=== PATIENT | female | born 1950 | race Caucasian/White ===

== ENCOUNTER → 2016-11-16 | Day surgery (SDC) | payer OTHER, MEDICAID ==
[~2016-11-16] VITALS: Ht 149.8 cm; Wt 56.7 kg
[~2016-11-16] MED LIST: AMITRIPTYLINE H10 M1 PO; ANTIVERT/2525 MG PO; ANTIVERT25 MG PO; B12,B-12,B 12500 MC1 PO; B121000 MCG/2; BACTRIM DS 8001 TA1 PO; CIPROFLOXACIN500 MG PO; DARVOCET N 1001 TAB PO; DONNATAL1 TAB PO; EVISTA60 MG PO; FERROUS SULFAT325 M1 PO; FLAGYL500 MG PO; FLEXERIL10 MG PO; FLEXERIL5 MG PO; GLUCOPHAGE500 M1 PO; HYDROCODONE BIT1 T11 PO; JANUVIA100 MG PO; KEFLEX500 MG PO; LEVOFLOXACIN500 MG PO; MECLIZINE HCL25 M2 PO; MIRTAZAPINE15 M1 PO; MIRTAZAPINE7.5 MG PO; NEURONTIN300 MG PO; NEXIUM40 MG PO; NORTRIPTYLINE10 MG PO; OMNICEF300 MG PO; OS-CAL 500500 M1 PO; PAXIL20 MG PO; PEPCID20 MG PO; PRAVACHOL40 MG PO; PRAVACHOL80 MG PO; PRILOSEC20 M1 PO; PYRIDIUM200 M1 PO; REGLAN5 MG PO; REMERON15 M2 PO; SEPTRA DS 800 M1 TAB PO; SIMVASTATIN40 MG PO; TOPROL XL25 MG PO; TRAMADOL HCL50 MG PO; TRAZODONE HCL50 MG PO; TRAZODONE50 MG PO; ULTRAM50 MG PO; VENTOLIN 02.5 MG/3 M INH; VENTOLIN0.09 MG/AC INH; VICODIN 500 MG-1 TAB PO; VITAMIN D2000 IU PO; VITAMIN D32000 UNIT PO; ZETIA10 MG PO; ZITHROMAX Z PA250 MG PO
--- NOTE | ~2016-11-16 | O ---
[place], [place] OPERATIVE NOTE NAME: FRANCISCO SALEEM I UNIT #: [id number] ROOM: DOCTOR: SHARMIN HOYT MD BIRTHDATE: [birth year] DOS: 11/16/2016 PREOPERATIVE DIAGNOSIS: Toxic labyrinthitis, left ear. POSTOPERATIVE DIAGNOSIS: Toxic labyrinthitis, left ear. OPERATION: Intratympanic dexamethasone injection, left ear. SURGEON: Dr. Hoyt. ANESTHESIA: General. OPERATIVE FINDINGS AND PROCEDURE: Following induction of general anesthesia the patient was positioned supine on the OR table, draped in a standard fashion for ear surgery. Approximately 1 mL of dexamethasone injection 10 mg/mL concentration was placed in the left middle ear space using a 25 gauge spinal needle. The patient tolerated the procedure well, was awakened and transported to PACU in satisfactory condition. SHARMIN HOYT MD CM:OPRECORD:OPERATIVE NOTE 0940 [id number] SHARMIN HOYT MD 11/16/16 1009 interface
[2016-11-16 09:13] VITALS: BP 147/71
[2016-11-16 09:52] VITALS: BP 135/65
[2016-11-16 10:07] VITALS: BP 139/63
[2016-11-16 10:22] VITALS: BP 133/73
== END | disposition home or self-care (01) ==
LOC: SDC 11-15 17:30
DX: H83.02 Labyrinthitis, left ear (principal); F32.9 Major depressive disorder, single episode, unspecified; M19.90 Unspecified osteoarthritis, unspecified site; E11.9 Type 2 diabetes mellitus without complications; J45.909 Unspecified asthma, uncomplicated; F41.9 Anxiety disorder, unspecified; G47.30 Sleep apnea, unspecified; Z98.84 Bariatric surgery status; Z90.710 Acquired absence of both cervix and uterus; Z83.3 Family history of diabetes mellitus; Z82.5 Family history of asthma and other chronic lower respiratory diseases; Z82.49 Family history of ischemic heart disease and other diseases of the circulatory system; Z87.891 Personal history of nicotine dependence

== ENCOUNTER 2017-01-17 18:28 | Inpatient (IN) | payer OTHER, MEDICAID ==
[~2017-01-17] VITALS: Ht 152.4 cm; Wt 59.5 kg
--- NOTE | ~2017-01-17 | CON ---
[place], [place] REPORT OF CONSULTATION NAME: FRANCISCO SALEEM I UNIT #: [id number] ROOM: 519 DOCTOR: YULIYA CRAFT MD BIRTHDATE: [birth year] DOS: HISTORY OF PRESENT ILLNESS: A 66-year-old female with a history of diabetes, presented with persistent headache that lasted about a couple of hours prior to coming to the Emergency Room. I had done a stress test on her in 01/11 showed no evidence of ischemia with preserved systolic function. She had some associated shortness of breath. No chest discomfort. Also, intermittent chest pain, but last night, did have some pain. No acute EKG changes, suggestion of myocardial injury or infarction. Chest x-ray in the Emergency Room showed no pneumonia. PAST MEDICAL HISTORY: Diabetes, hypertension, hyperlipidemia. PAST SURGICAL HISTORY: Cholecystectomy, gastric bypass surgery, hysterectomy. SOCIAL HISTORY: 1-2 cigarettes a day for 1 year, used to smoke about 1 pack per day for 35 years. Denies any alcohol abuse. FAMILY HISTORY: Positive for lung cancer. ALLERGIES: LEVOFLOXACIN. HOME MEDICATIONS: Meclizine, metoprolol succinate, omeprazole, pravastatin. REVIEW OF SYSTEMS: CONSTITUTIONAL: No fever, no chills. HEENT: No visual disturbances or hearing problems. CARDIOVASCULAR: No chest pain, no palpitations. RESPIRATORY: Has some shortness of breath. GASTROINTESTINAL: No nausea, no vomiting. GENITOURINARY: No dysuria, hematuria. NEUROLOGIC: Has some dizziness. ENDOCRINE: Intact. SKIN: Normal. PHYSICAL EXAMINATION: VITAL SIGNS: Blood pressure is 150/60. HEENT: Unremarkable. NECK: Supple, no JVD. LUNGS: Clear to auscultation and percussion. HEART: Heart sounds are regular. ABDOMEN: Soft. Good bowel sounds. EXTREMITIES: Intact pulses. NEUROLOGIC: Stable. LABORATORY DATA: Hemoglobin and hematocrit within normal limits. Potassium 5.1, creatinine is 1.1. Liver functions are normal. Chest x-ray showed no pneumonia. IMPRESSION: The patient with atypical chest discomfort, history of diabetes, [place], [place] REPORT OF CONSULTATION NAME: FRANCISCO SALEEM I UNIT #: [id number] ROOM: 519 DOCTOR: YULIYA CRAFT MD BIRTHDATE: [birth year] hypertension, and hyperlipidemia. Recent stress test is completely normal. Maximize the medications, increase the metoprolol to 25 daily from 12.5 to 25. RECOMMENDATIONS: Continue all her other home medications and will follow up. YULIYA CRAFT MD CM:CONSTR:REPORT OF CONSULTATION 0732 01/18/17 0759 interface
--- NOTE | ~2017-01-17 | PR ---
[place], [place] PROGRESS NOTE NAME: FRANCISCO SALEEM I UNIT #: [id number] ROOM: 519 DOCTOR: YULIYA CRAFT MD BIRTHDATE: [birth year] DOS: SUBJECTIVE: 24-hour events noted. Discussed with the nursing staff. Cardiac status appears to be stable. She denies any more chest discomfort. All her cardiac enzymes have been negative. The patient has problems with the blood sugars and being evaluated. OBJECTIVE: VITAL SIGNS: Blood pressure is 120/60. She is in sinus rhythm. Pulse ox is 100. NECK: Supple, no JVD. LUNGS: Clear. HEART: Sounds are regular. ABDOMEN: Soft, nontender. NEUROLOGIC: Stable. LABORATORY DATA: Hemoglobin and hematocrit within normal limits. Electrolytes are normal. Troponins have all been negative. Glucose is 103, yesterday she was hypoglycemic. IMPRESSION: The patient admitted with headaches and atypical chest discomfort. Cardiac status appears to be stable. PLAN: Continue the present medications as ordered. Continue the insulin, monitor the blood sugars very closely and we will follow up. YULIYA CRAFT MD CM:PNTRANS [id number] YULIYA CRAFT MD 01/19/17 1041 interface
[~2017-01-17 18:28] MED LIST changes: -AMITRIPTYLINE H10 M1 PO; -B12,B-12,B 12500 MC1 PO
[2017-01-17 18:38] VITALS: BP 148/60
[2017-01-17 19:04] LABS: BASO # 0.1 10*3/uL (0.0-0.1); BASO % 0.8 % (0.0-1.0); EOS # 0.1 10*3/uL (0.0-0.4); EOS % 1.4 % (1.0-4.0); HEMATOCRIT 40.6 % (37.0-47.0); HEMOGLOBIN 13.1 g/dl (12.0-16.0); LYMPH % 30.5 % (27.0-41.0); MEAN CELL VOLUME 98.5 fl (81.0-99.0); MEAN CORPUSCULAR HGB 31.8 pg (27.0-31.0); MEAN CORPUSCULAR HGB CONC 32.3 g/dl (33.0-37.0); MEAN PLATELET VOLUME 11.2 fl (9.6-12.3); MONO # 0.4 10*3/uL (0.1-1.0); MONO % 6.3 % (3.0-9.0); NEUT % 60.8 % (47.0-73.0); PLATELET COUNT AUTOMATED 267 10*3/uL (130-400); RED BLOOD COUNT 4.12 10*6/uL (4.10-5.10); RED CELL DISTRI WIDTH 13.2 % (0-14.5); WHITE BLOOD COUNT 6.6 10*3/uL (4.8-10.8)
[2017-01-17 19:16] VITALS: BP 164/84
[2017-01-17 19:24] LABS: ALKALINE PHOSPHATASE 178 U/L (45-117); BILIRUBIN, TOTAL 0.2 mg/dl (0.2-1.0); BUN 15 mg/dl (7-24); CARBON DIOXIDE 23 mmol/L (21-32); CHLORIDE 107 mmol/L (98-107); EST GLOM FILT AFRICAN AMERICAN 57 ml/min; GLUCOSE 409 mg/dL (65-99); POTASSIUM 5.1 mmol/L (3.5-5.1); SGOT/AST 22 IU/L (3-35); SGPT/ALT 27 U/L (12-78); SODIUM 142 mmol/L (136-145); TOTAL PROTEIN 6.4 gm/dL (6.4-8.2)
[2017-01-17 19:28] LABS: TROPONIN I < 0.015 ng/ml (<0.045)
[2017-01-17 20:16] VITALS: BP 152/73
[2017-01-17 20:23] LABS: BILIRUBIN NEGATIVE (NEGATIVE); BLOOD NEGATIVE (NEGATIVE); CLARITY CLEAR (CLEAR); COLOR YELLOW (YELLOW); GLUCOSE 3+ (NEGATIVE); KETONE TRACE (NEGATIVE); LEUKO ESTERASE NEGATIVE (NEGATIVE); NITRITE NEGATIVE (NEGATIVE); PROTEIN NEGATIVE (NEGATIVE); SPECIFIC GRAVITY 1.025 (1.005-1.030); UROBILINOGEN 0.2 E.U./dl (0.2-1.0)
[2017-01-17 20:34] LABS: URINE REFLEX COMMENT YES (NO)
[2017-01-17 21:04] VITALS: BP 154/67
[2017-01-18] VITALS: BP 150/73
[2017-01-18 00:55] LABS: CKMB 1.5 ng/ml (0.5-3.6); CPK 54 U/L (26-192)
[2017-01-18 00:56] LABS: TROPONIN I < 0.015 ng/ml (<0.045)
[2017-01-18] MEDS ORDERED: AMITRIPTYLINE H10 M1 PO (02:02)
[2017-01-18 06:20] LABS: BASO # 0.1 10*3/uL (0.0-0.1); BASO % 0.7 % (0.0-1.0); EOS # 0.2 10*3/uL (0.0-0.4); EOS % 2.1 % (1.0-4.0); HEMATOCRIT 36.6 % (37.0-47.0); HEMOGLOBIN 11.9 g/dl (12.0-16.0); LYMPH # 3.9 10*3/uL (1.3-4.4); LYMPH % 47.3 % (27.0-41.0); MEAN CELL VOLUME 98.1 fl (81.0-99.0); MEAN CORPUSCULAR HGB 31.9 pg (27.0-31.0); MEAN CORPUSCULAR HGB CONC 32.5 g/dl (33.0-37.0); MEAN PLATELET VOLUME 11.3 fl (9.6-12.3); MONO # 0.6 10*3/uL (0.1-1.0); MONO % 7.7 % (3.0-9.0); NEUT # 3.4 10*3/uL (2.3-7.9); PLATELET COUNT AUTOMATED 209 10*3/uL (130-400); RED BLOOD COUNT 3.73 10*6/uL (4.10-5.10); RED CELL DISTRI WIDTH 13.1 % (0-14.5); WHITE BLOOD COUNT 8.2 10*3/uL (4.8-10.8)
[2017-01-18 06:34] LABS: BUN 11 mg/dl (7-24); CARBON DIOXIDE 20 mmol/L (21-32); CHLORIDE 115 mmol/L (98-107); CHOLESTEROL 90 mg/dL (<200); EST GLOM FILT AFRICAN AMERICAN > 60 ml/min; GLUCOSE 66 mg/dL (65-99); HDL CHOLESTEROL 54 mg/dl (40-60); LDL CHOLESTEROL 28 mg/dL (9-159); MAGNESIUM 2.1 mg/dL (1.5-2.1); PHOSPHOROUS 3.7 mg/dL (2.5-4.9); POTASSIUM 3.7 mmol/L (3.5-5.1); SODIUM 148 mmol/L (136-145); TRIGLYCERIDES 41 mg/dl (<150); VLDL CHOLESTEROL 8 mg/dL (6-40)
[2017-01-18 06:36] LABS: CKMB 1.5 ng/ml (0.5-3.6); CPK 59 U/L (26-192); TROPONIN I < 0.015 ng/ml (<0.045)
[2017-01-18 06:54] LABS: HEMOGLOBIN A1c 6.7 % (4.8-5.6)
[2017-01-18 08:00] VITALS: BP 120/52
[2017-01-18 08:27] LABS: VITAMIN D, 25-HYDROXY 30.4 ng/mL (30-100)
[2017-01-18 08:28] LABS: FOLIC ACID 20.75 ng/mL (>5.38)
[2017-01-18 12:00] VITALS: BP 139/80
[2017-01-18 16:00] VITALS: BP 124/71
[2017-01-18 20:00] VITALS: BP 118/66
[2017-01-19] VITALS: BP 128/52
[2017-01-19 06:15] LABS: BASO # 0.1 10*3/uL (0.0-0.1); EOS # 0.2 10*3/uL (0.0-0.4); EOS % 3.7 % (1.0-4.0); HEMATOCRIT 37.1 % (37.0-47.0); HEMOGLOBIN 12.2 g/dl (12.0-16.0); LYMPH # 2.9 10*3/uL (1.3-4.4); LYMPH % 47.4 % (27.0-41.0); MEAN CELL VOLUME 96.9 fl (81.0-99.0); MEAN CORPUSCULAR HGB 31.9 pg (27.0-31.0); MEAN CORPUSCULAR HGB CONC 32.9 g/dl (33.0-37.0); MEAN PLATELET VOLUME 11.4 fl (9.6-12.3); MONO # 0.7 10*3/uL (0.1-1.0); MONO % 10.6 % (3.0-9.0); NEUT # 2.3 10*3/uL (2.3-7.9); NEUT % 37.1 % (47.0-73.0); PLATELET COUNT AUTOMATED 238 10*3/uL (130-400); RED BLOOD COUNT 3.83 10*6/uL (4.10-5.10); RED CELL DISTRI WIDTH 13.2 % (0-14.5); WHITE BLOOD COUNT 6.1 10*3/uL (4.8-10.8)
[2017-01-19 06:41] LABS: BUN 7 mg/dl (7-24); CARBON DIOXIDE 25 mmol/L (21-32); CHLORIDE 107 mmol/L (98-107); EST GLOM FILT AFRICAN AMERICAN > 60 ml/min; GLUCOSE 103 mg/dL (65-99); POTASSIUM 3.6 mmol/L (3.5-5.1); SODIUM 143 mmol/L (136-145)
[2017-01-19 07:51] VITALS: BP 120/60
[2017-01-19 12:00] VITALS: BP 101/59
[2017-01-19] MEDS ORDERED: B12,B-12,B 12500 MC1 PO (13:59)
[2017-01-19 16:00] VITALS: BP 138/57
== END 2017-01-19 17:02 | disposition home or self-care (01) | DRG 391 ==
LOC: ED 18:28 → 5E 20:01 → EDHOLD 20:01 → 5E 20:20
PROVIDERS: Internal Medicine; Nurse Practitioner Family
DX: K21.9 Gastro-esophageal reflux disease without esophagitis (principal); N17.0 Acute kidney failure with tubular necrosis; E87.0 Hyperosmolality and hypernatremia; E44.0 Moderate protein-calorie malnutrition; E11.649 Type 2 diabetes mellitus with hypoglycemia without coma; F17.210 Nicotine dependence, cigarettes, uncomplicated; Z96.651 Presence of right artificial knee joint; E55.9 Vitamin D deficiency, unspecified; E11.40 Type 2 diabetes mellitus with diabetic neuropathy, unspecified; E78.5 Hyperlipidemia, unspecified; M81.0 Age-related osteoporosis without current pathological fracture; E53.8 Deficiency of other specified B group vitamins; Z90.710 Acquired absence of both cervix and uterus; Z90.49 Acquired absence of other specified parts of digestive tract; Z88.1 Allergy status to other antibiotic agents; Z88.8 Allergy status to other drugs, medicaments and biological substances; Z79.899 Other long term (current) drug therapy; Z68.24 Body mass index [BMI] 24.0-24.9, adult

== ENCOUNTER 2017-03-27 19:36 | Inpatient (IN) | payer OTHER, MEDICAID ==
[~2017-03-27] VITALS: Ht 152.4 cm; Wt 59.2 kg
--- NOTE | ~2017-03-27 | CON ---
[place], [place] REPORT OF CONSULTATION NAME: FRANCISCO SALEEM I UNIT #: [id number] ROOM: 408 DOCTOR: YULIYA CRAFT MD BIRTHDATE: [birth year] DOS: 03/29/2017 HISTORY OF PRESENT ILLNESS: The patient was seen by Dr. 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 The patient admitted with recurrent chest discomfort. I had just done a stress test on her in January, it showed no evidence of ischemia with preserved systolic function. No acute EKG changes suggestion of myocardial ischemia. She is in sinus rhythm. She is not having any pain. OBJECTIVE: NECK: Supple, no JVD. LUNGS: Clear. HEART: Sounds are regular. ABDOMEN: Soft, nontender. NEUROLOGIC: Stable. LABORATORY DATA: Hemoglobin and hematocrit within normal limits. Cardiac enzymes have all been negative. The patient has been ordered an echocardiogram, which I am going to review. IMPRESSION: The patient with recurrent chest discomfort, protein-calorie malnutrition, hypertension, hyperlipidemia, and diabetes mellitus. PLAN: Continue the present care. Monitor the blood pressure and heart rate closely. We will review the echocardiogram. The patient had a recent stress test which was normal and probably coronary spasm, add a small dose of nitrates to the current regimen like Imdur 15 mg or 30 mg. If she has recurrent angina, I have no other choice other than proceeding with a heart catheterization. Last heart catheterization done in 2010 showed no significant coronary artery disease. YULIYA CRAFT MD CM:CONSTR:REPORT OF CONSULTATION 0723 03/29/17 2153 interface
--- NOTE | ~2017-03-27 | CON ---
[place], [place] REPORT OF CONSULTATION NAME: FRANCISCO SALEEM I UNIT #: [id number] ROOM: 408 DOCTOR: PATRICIA NICK MD BIRTHDATE: [birth year] DOS: 03/28/2017 HISTORY OF PRESENT ILLNESS: This is a 67-year-old -[place] woman with a history of moderate coronary artery disease, has some COPD. She was admitted to the hospital through the Emergency Department. While sitting at home yesterday, she developed anterior chest pressure and discomfort that lasted for about 15 minutes. It was accompanied by mild shortness of breath, but there was no accompanying sweating, nausea, palpitations, or weakness and she did not pass out. She has not had any exertional chest pain or weakness recently, but does have mild exertional shortness of breath. She has had no further episodes. She is a fairly active lady without any cardiac symptoms. PAST MEDICAL HISTORY: [id number] coronary artery disease, GERD, dizziness, hyperlipidemia, hypertension, osteoporosis, has had renal insufficiency in the past, and diabetes mellitus with neuropathy. PAST SURGICAL HISTORY: Cholecystectomy, gastric bypass, hysterectomy, total knee replacement, ventral herniorrhaphy. SOCIAL HISTORY: She smokes about a pack of cigarettes per day. No alcohol use. HOME MEDICATIONS: Amitriptyline 10 mg daily, cyanocobalamin 500 mcg daily, gabapentin 300 daily, meclizine 25 mg b.i.d. p.r.n., metformin 500 mg daily, metoprolol succinate 25 mg half tablet daily, Remeron 15 mg at bedtime, omeprazole 40 mg daily, pravastatin 40 daily, and Evista 60 mg daily. PHYSICAL EXAMINATION: GENERAL: Revealed the patient who looks little older than her age, she is alert and oriented. She is very comfortable. She is not tachypneic. There is no thyromegaly or finger clubbing. CARDIOVASCULAR SYSTEM: Pulse is regular at 72, blood pressure 150/61. Normal JVP. Pedal pulses are palpable. There is no edema in the lower extremities. There are no carotid bruits. RESPIRATORY: Percussion noted normal. Auscultation reveals fairly decent breath sounds with occasional rhonchi. ABDOMEN: Supple, nontender, no organomegaly is present. DIAGNOSTIC STUDIES: An ECG showed normal sinus rhythm at 71 beats per minute and a normal pattern. Troponin I level is less than 0.015 x 3. Renal function is normal. IMPRESSION: This patient with risk factors for known coronary artery disease, has symptoms that are very atypical for myocardial ischemia and I discussed this with Dr. Craft, he will checkout patient's cath report and will recommended whether further cardiac workup is warranted in this patient. I thank you on behalf of Dr. Craft for this consult done. [place], [place] REPORT OF CONSULTATION NAME: HARPERFRANCISCO I UNIT #: [id number] ROOM: [facility] DOCTOR: PATRICIA NICK MD BIRTHDATE: [birth year] PATRICIA NICK MD CM:CONSTR:REPORT OF CONSULTATION 1535 03/29/17 1318 interface YULIYA CRAFT MD
[~2017-03-27 19:36] MED LIST changes: +AMITRIPTYLINE H10 M1 PO; +B12,B-12,B 12500 MC1 PO
[2017-03-27 19:41] VITALS: BP 151/77
[2017-03-27 19:48] VITALS: BP 161/68
[2017-03-27 20:06] LABS: BASO # 0.1 10*3/uL (0.0-0.1); BASO % 1.1 % (0.0-1.0); EOS # 0.2 10*3/uL (0.0-0.4); EOS % 2.7 % (1.0-4.0); HEMATOCRIT 40.6 % (37.0-47.0); HEMOGLOBIN 13.3 g/dl (12.0-16.0); LYMPH # 3.1 10*3/uL (1.3-4.4); LYMPH % 41.9 % (27.0-41.0); MEAN CELL VOLUME 95.5 fl (81.0-99.0); MEAN CORPUSCULAR HGB 31.3 pg (27.0-31.0); MEAN CORPUSCULAR HGB CONC 32.8 g/dl (33.0-37.0); MEAN PLATELET VOLUME 11.8 fl (9.6-12.3); MONO # 0.5 10*3/uL (0.1-1.0); MONO % 6.7 % (3.0-9.0); NEUT # 3.6 10*3/uL (2.3-7.9); NEUT % 47.5 % (47.0-73.0); PLATELET COUNT AUTOMATED 274 10*3/uL (130-400); RED BLOOD COUNT 4.25 10*6/uL (4.10-5.10); RED CELL DISTRI WIDTH 13.2 % (0-14.5); WHITE BLOOD COUNT 7.5 10*3/uL (4.8-10.8)
[2017-03-27 20:16] LABS: PROTHROMBIN TIME 10.8 SECONDS (9.0-12.4)
[2017-03-27 20:40] VITALS: BP 141/61
[2017-03-27 20:41] LABS: ALBUMIN 2.9 gm/dl (3.1-4.5); ALKALINE PHOSPHATASE 195 U/L (45-117); BILIRUBIN, TOTAL 0.3 mg/dl (0.2-1.0); BUN 10 mg/dl (7-24); CARBON DIOXIDE 23 mmol/L (21-32); CHLORIDE 109 mmol/L (98-107); EST GLOM FILT AFRICAN AMERICAN > 60 ml/min; GLUCOSE 282 mg/dL (65-99); MAGNESIUM 1.9 mg/dL (1.5-2.1); POTASSIUM 3.5 mmol/L (3.5-5.1); SGOT/AST 27 IU/L (3-35); SGPT/ALT 26 U/L (12-78); SODIUM 140 mmol/L (136-145); TOTAL PROTEIN 6.4 gm/dL (6.4-8.2)
[2017-03-27 20:42] LABS: TROPONIN I < 0.015 ng/ml (<0.045)
[2017-03-27 20:46] VITALS: BP 134/60
[2017-03-27 20:55] VITALS: BP 122/59
[2017-03-27 22:03] VITALS: BP 128/69
[2017-03-27] MEDS ORDERED: PRAVACHOL40 MG PO (22:12)
[2017-03-27] MEDS ORDERED: EVISTA60 MG PO (22:12)
[2017-03-27] MEDS ORDERED: METFORMIN500 MG PO (22:13)
[2017-03-27] MEDS ORDERED: PRILOSEC20 M1 PO (22:15)
[2017-03-27] MEDS ORDERED: METOPROLOL SUCC50 M1 PO (22:15)
[2017-03-28] VITALS: BP 128/69
[2017-03-28 07:17] LABS: BASO # 0.1 10*3/uL (0.0-0.1); BASO % 0.9 % (0.0-1.0); EOS # 0.3 10*3/uL (0.0-0.4); EOS % 3.2 % (1.0-4.0); HEMATOCRIT 39.3 % (37.0-47.0); LYMPH # 3.8 10*3/uL (1.3-4.4); MEAN CELL VOLUME 94.5 fl (81.0-99.0); MEAN CORPUSCULAR HGB 31.3 pg (27.0-31.0); MEAN CORPUSCULAR HGB CONC 33.1 g/dl (33.0-37.0); MEAN PLATELET VOLUME 12.4 fl (9.6-12.3); MONO # 0.7 10*3/uL (0.1-1.0); MONO % 8.5 % (3.0-9.0); NEUT # 3.2 10*3/uL (2.3-7.9); PLATELET COUNT AUTOMATED 232 10*3/uL (130-400); RED BLOOD COUNT 4.16 10*6/uL (4.10-5.10); WHITE BLOOD COUNT 8.1 10*3/uL (4.8-10.8)
[2017-03-28 07:22] LABS: ALBUMIN 2.8 gm/dl (3.1-4.5); ALKALINE PHOSPHATASE 167 U/L (45-117); BILIRUBIN, TOTAL 0.3 mg/dl (0.2-1.0); BUN 12 mg/dl (7-24); CARBON DIOXIDE 23 mmol/L (21-32); CHLORIDE 111 mmol/L (98-107); EST GLOM FILT AFRICAN AMERICAN > 60 ml/min; FREE T4 1.08 ng/dl (0.76-1.46); GLUCOSE 94 mg/dL (65-99); MAGNESIUM 2.1 mg/dL (1.5-2.1); POTASSIUM 3.5 mmol/L (3.5-5.1); SGOT/AST 22 IU/L (3-35); SGPT/ALT 23 U/L (12-78); SODIUM 143 mmol/L (136-145); TOTAL PROTEIN 5.7 gm/dL (6.4-8.2)
[2017-03-28 08:00] VITALS: BP 132/52
[2017-03-28] MEDS ORDERED: TOPROL XL25 MG PO (09:46)
[2017-03-28 12:00] VITALS: BP 115/61
[2017-03-28 16:00] VITALS: BP 116/58
[2017-03-28 20:00] VITALS: BP 135/63
[2017-03-29] VITALS (7 sets, daily range): BP systolic 100–128; BP diastolic 49–79
[2017-03-29] MEDS ORDERED: D-1000 185 MG-11 TAB PO (15:26)
[2017-03-29] MEDS ORDERED: CALCIUM CARBON500 M1 PO (15:26)
[2017-03-30] VITALS: BP 96/52
[2017-03-30 00:45] LABS: CKMB 1.3 ng/ml (0.5-3.6); CPK 46 U/L (26-192)
[2017-03-30 00:47] LABS: TROPONIN I < 0.015 ng/ml (<0.045)
== END 2017-03-30 06:57 | disposition short-term general hospital (02) | DRG 392 ==
LOC: ED 19:36 → EDHOLD 21:01 → 4E 21:01
PROVIDERS: Emergency Medicine Emergency Medical Services; Family Medicine; Internal Medicine Hospice and Palliative Medicine
DX: K21.9 Gastro-esophageal reflux disease without esophagitis (principal); E44.0 Moderate protein-calorie malnutrition; E11.40 Type 2 diabetes mellitus with diabetic neuropathy, unspecified; E83.51 Hypocalcemia; I07.1 Rheumatic tricuspid insufficiency; F17.210 Nicotine dependence, cigarettes, uncomplicated; I10 Essential (primary) hypertension; E78.5 Hyperlipidemia, unspecified; I25.10 Atherosclerotic heart disease of native coronary artery without angina pectoris; Z96.651 Presence of right artificial knee joint; M81.0 Age-related osteoporosis without current pathological fracture; I35.1 Nonrheumatic aortic (valve) insufficiency; Z68.25 Body mass index [BMI] 25.0-25.9, adult; Z88.1 Allergy status to other antibiotic agents; Z88.8 Allergy status to other drugs, medicaments and biological substances; Z91.048 Other nonmedicinal substance allergy status; Z90.49 Acquired absence of other specified parts of digestive tract; Z90.710 Acquired absence of both cervix and uterus; Z80.1 Family history of malignant neoplasm of trachea, bronchus and lung; Z83.3 Family history of diabetes mellitus; Z80.41 Family history of malignant neoplasm of ovary; Z79.84 Long term (current) use of oral hypoglycemic drugs; Z79.899 Other long term (current) drug therapy

== ENCOUNTER → 2017-06-01 | Day surgery (SDC) | payer OTHER, MEDICAID ==
[2017-05-26 09:30] VITALS: BP 114/58
[~2017-06-01] VITALS: Ht 149.8 cm; Wt 55.8 kg
[~2017-06-01] MED LIST changes: +CALCIUM CARBON500 M1 PO; +D-1000 185 MG-11 TAB PO; +METFORMIN500 MG PO; +METOPROLOL SUCC50 M1 PO; +RANEXA500 M1 PO; +VITAMIN D310000 UNI1 PO
--- NOTE | ~2017-06-01 | O ---
[place], [place] OPERATIVE NOTE NAME: FRANCISCO SALEEM I UNIT #: [id number] ROOM: DOCTOR: SHARMIN HOYT MD BIRTHDATE: [birth year] DOS: 06/01/2017 PREOPERATIVE DIAGNOSIS: Toxic labyrinthitis left ear. POSTOPERATIVE DIAGNOSIS: Toxic labyrinthitis left ear. OPERATION: Intratympanic dexamethasone perfusion left ear. SURGEON: Dr. Hoyt. ANESTHESIA: General. OPERATIVE FINDINGS AND PROCEDURE: Following induction of general anesthesia the patient was positioned supine on the OR table, draped in a standard fashion for ear surgery. Approximately 1 mL of dexamethasone injection 10 mg/mL concentration was placed in the left middle ear space using a 25 gauge spinal needle. The patient tolerated the procedure well, was awakened and transported to PACU in satisfactory condition. SHARMIN HOYT MD CM:OPRECORD:OPERATIVE NOTE 0811 0840 SHARMIN HOYT MD 06/01/17 0841 interface
[2017-06-01 07:30] VITALS: BP 152/71
[2017-06-01 08:12] VITALS: BP 133/72
[2017-06-01 08:25] VITALS: BP 131/65
[2017-06-01 08:42] VITALS: BP 123/61
== END | disposition home or self-care (01) ==
LOC: SDC 05-26 09:30
DX: H83.02 Labyrinthitis, left ear (principal); F32.9 Major depressive disorder, single episode, unspecified; M19.90 Unspecified osteoarthritis, unspecified site; E11.9 Type 2 diabetes mellitus without complications; J45.909 Unspecified asthma, uncomplicated; F41.9 Anxiety disorder, unspecified; F17.210 Nicotine dependence, cigarettes, uncomplicated; G47.30 Sleep apnea, unspecified; Z90.49 Acquired absence of other specified parts of digestive tract; Z98.890 Other specified postprocedural states; Z95.1 Presence of aortocoronary bypass graft; Z83.3 Family history of diabetes mellitus; Z82.49 Family history of ischemic heart disease and other diseases of the circulatory system

== ENCOUNTER → 2017-06-16 | Outpatient (CLI) | payer OTHER, MEDICAID ==
[2017-06-16 12:03] LABS: BUN 9 mg/dl (7-24); EST GLOM FILT AFRICAN AMERICAN > 60 ml/min
== END | disposition home or self-care (01) ==
LOC: LAB 11:31
PROVIDERS: Specialist
DX: R42 Dizziness and giddiness (principal)

== ENCOUNTER → 2017-06-21 | Outpatient (CLI) | payer OTHER, MEDICAID | END | disposition home or self-care (01) | LOC: MRI 12:23 | DX: R51 Headache (principal); R42 Dizziness and giddiness ==

== ENCOUNTER 2017-07-03 15:52 | Emergency (ER) | payer OTHER, MEDICAID ==
[~2017-07-03] VITALS: Ht 124.4 cm; Wt 58.1 kg
[2017-07-03 16:18] LABS: BASO # 0.1 10*3/uL (0.0-0.1); BASO % 0.8 % (0.0-1.0); EOS # 0.1 10*3/uL (0.0-0.4); EOS % 1.6 % (1.0-4.0); HEMATOCRIT 36.9 % (37.0-47.0); HEMOGLOBIN 11.8 g/dl (12.0-16.0); LYMPH # 3.7 10*3/uL (1.3-4.4); LYMPH % 46.8 % (27.0-41.0); MEAN CELL VOLUME 92.9 fl (81.0-99.0); MEAN CORPUSCULAR HGB 29.7 pg (27.0-31.0); MEAN PLATELET VOLUME 11.5 fl (9.6-12.3); MONO # 0.6 10*3/uL (0.1-1.0); NEUT # 3.4 10*3/uL (2.3-7.9); NEUT % 42.5 % (47.0-73.0); PLATELET COUNT AUTOMATED 245 10*3/uL (130-400); RED BLOOD COUNT 3.97 10*6/uL (4.10-5.10); RED CELL DISTRI WIDTH 14.2 % (0-14.5)
[2017-07-03 16:27] LABS: ACT PARTIAL THROMBO TIME 23.9 SECONDS (20.8-31.5)
[2017-07-03 16:34] LABS: ALBUMIN 2.8 gm/dl (3.1-4.5); ALKALINE PHOSPHATASE 162 U/L (45-117); BUN 12 mg/dl (7-24); CHLORIDE 115 mmol/L (98-107); CREATININE 0.74 mg/dL (0.55-1.02); MAGNESIUM 2.2 mg/dL (1.5-2.1); POTASSIUM 3.7 mmol/L (3.5-5.1); SGOT/AST 27 IU/L (3-35); SGPT/ALT 21 U/L (12-78); SODIUM 144 mmol/L (136-145)
[2017-07-03 16:35] LABS: TROPONIN I < 0.015 ng/ml (<0.045)
[2017-07-03 16:46] VITALS: BP 131/65
== END 2017-07-03 17:11 | disposition home or self-care (01) ==
LOC: ED 15:52
PROVIDERS: Emergency Medicine
DX: R07.9 Chest pain, unspecified (principal); R03.0 Elevated blood-pressure reading, without diagnosis of hypertension; Z88.1 Allergy status to other antibiotic agents; Z88.8 Allergy status to other drugs, medicaments and biological substances; Z79.899 Other long term (current) drug therapy; Z87.891 Personal history of nicotine dependence

== ENCOUNTER 2017-09-22 16:36 | Emergency (ER) | payer OTHER, MEDICAID ==
[~2017-09-22] VITALS: Ht 152.4 cm; Wt 55.8 kg
[2017-09-22 16:36] VITALS: BP 137/67
[2017-09-22 19:35] LABS: BILIRUBIN NEGATIVE (NEGATIVE); BLOOD NEGATIVE (NEGATIVE); CLARITY SL CLOUDY (CLEAR); COLOR YELLOW (YELLOW); GLUCOSE 1+ (NEGATIVE); KETONE NEGATIVE (NEGATIVE); LEUKO ESTERASE NEGATIVE (NEGATIVE); NITRITE POSITIVE (NEGATIVE); PH 5.5 (5.0-9.0); SPECIFIC GRAVITY 1.025 (1.005-1.030); UROBILINOGEN 0.2 E.U./dl (0.2-1.0)
[2017-09-22 19:45] LABS: BACTERIA 3+; CALCIUM OXALATE CRYSTALS 2+; EPITHELIAL CELLS 0-2
[2017-09-22] MEDS ORDERED: MACROBID100 M1 PO (20:13)
[2017-09-22] MEDS ORDERED: PYRIDIUM100 MG PO (20:16)
== END 2017-09-22 20:21 | disposition home or self-care (01) ==
LOC: ED 16:36
PROVIDERS: Nurse Practitioner
DX: N39.0 Urinary tract infection, site not specified (principal); Z88.8 Allergy status to other drugs, medicaments and biological substances; Z88.1 Allergy status to other antibiotic agents; Z79.84 Long term (current) use of oral hypoglycemic drugs; Z79.899 Other long term (current) drug therapy; Z90.49 Acquired absence of other specified parts of digestive tract; Z90.710 Acquired absence of both cervix and uterus; Z98.84 Bariatric surgery status; Z96.653 Presence of artificial knee joint, bilateral

== ENCOUNTER → 2017-10-18 | Outpatient (CLI) | payer OTHER, MEDICAID ==
[~2017-10-18] MED LIST changes: +MACROBID100 M1 PO; +PYRIDIUM100 MG PO
== END | disposition home or self-care (01) ==
LOC: MAMMO 09-14 14:00
DX: Z12.31 Encounter for screening mammogram for malignant neoplasm of breast (principal)

== ENCOUNTER → 2018-02-10 | Outpatient (CLI) | payer OTHER, MEDICAID ==
[2018-02-10 12:43] LABS: BASO # 0.1 10*3/uL (0.0-0.1); BASO % 0.8 % (0.0-1.0); EOS # 0.1 10*3/uL (0.0-0.4); EOS % 0.9 % (1.0-4.0); HEMATOCRIT 38.6 % (37.0-47.0); HEMOGLOBIN 12.1 g/dl (12.0-16.0); LYMPH # 2.4 10*3/uL (1.3-4.4); LYMPH % 32.6 % (27.0-41.0); MEAN CELL VOLUME 90.2 fl (81.0-99.0); MEAN CORPUSCULAR HGB 28.3 pg (27.0-31.0); MEAN CORPUSCULAR HGB CONC 31.3 g/dl (33.0-37.0); MEAN PLATELET VOLUME 11.8 fl (9.6-12.3); MONO # 0.5 10*3/uL (0.1-1.0); MONO % 7.1 % (3.0-9.0); NEUT # 4.4 10*3/uL (2.3-7.9); NEUT % 58.5 % (47.0-73.0); PLATELET COUNT AUTOMATED 303 10*3/uL (130-400); RED BLOOD COUNT 4.28 10*6/uL (4.10-5.10); RED CELL DISTRI WIDTH 14.1 % (0-14.5); WHITE BLOOD COUNT 7.5 10*3/uL (4.8-10.8)
[2018-02-10 12:50] LABS: IRON 37 ug/dL (50-170); TOTAL IRON BINDING CAPACITY 381 ug/dl (250-450)
== END | disposition home or self-care (01) ==
LOC: LAB 12:19
PROVIDERS: Nurse Practitioner Family
DX: D64.9 Anemia, unspecified (principal)

== ENCOUNTER → 2018-11-15 | Outpatient (CLI) | payer OTHER, MEDICAID ==
[~2018-11-15] MED LIST changes: +Amitriptyline H10 MG PO; +CEFUROXIME AXE250 MG PO
== END | disposition home or self-care (01) ==
LOC: MAMMO 07:38
DX: Z12.31 Encounter for screening mammogram for malignant neoplasm of breast (principal)

== ENCOUNTER 2018-11-29 12:49 | Inpatient (IN) | payer OTHER, MEDICAID ==
[~2018-11-29] VITALS: Ht 149.8 cm; Wt 47.2 kg
--- NOTE | 2018-11-29 | NUR ---
TYLENOL EFFECTIVE PER PT
--- NOTE | ~2018-11-29 | EKG ---
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
--- NOTE | ~2018-11-29 | CON ---
[place], [place] REPORT OF CONSULTATION NAME: FRANCISCO SALEEM I UNIT #: [id number] ROOM: 425 DOCTOR: OWEN VIDALES MD BIRTHDATE: [birth year] DOS: 12/01/2018 GASTROENDOSCOPIC REPORT HISTORY OF PRESENT ILLNESS: A 68-year-old patient who presented with chief complaint of abdominal pain, undergone investigation, CT scan of the abdomen and pelvis shows nonspecific colitis. CBC: White blood cell was 6, H and H of 12 and 39, platelet count was within normal limit. Lactic acid was 2.0. INR was 1.0. Comprehensive metabolic panel, GFR greater than 60. Electrolytes: Potassium and severe hypokalemia of 2.9, has been corrected. Lipase within normal limits. CBC was reassessed. Comprehensive metabolic reassessed. Hypokalemia, corrected. Urine culture greater than 100,000 bacteria. PAST MEDICAL HISTORY: Associated with nonspecific chest pain, hyponatremia, hyperlipidemia, renal insufficiency, osteoporosis, and UTI. PAST SURGICAL HISTORY: Gastric bypass, hysterectomy, cholecystectomy, right total knee, ventral hernia, cardiac catheterization, Raúl fundoplication in the past. ALLERGIES: CELEBREX, ADHESIVE TAPE, LEVOFLOXACIN, LEXAPRO, SOLU-MEDROL, PAXIL. MEDICATIONS: List has been reviewed. SOCIAL HISTORY: Smoker, nonalcohol consumer. FAMILY HISTORY: Noncontributory. REVIEW OF SYSTEMS: HEENT: Denies double vision, blurred vision. RESPIRATORY: Denies shortness of breath. CARDIOVASCULAR: Denies chest pain. DIGESTIVE SYSTEM: As identified above including abdominal pain, cramp, diarrhea. PHYSICAL EXAMINATION: VITAL SIGNS: Stable. HEENT: Head normocephalic, nontraumatic. Mouth and buccal mucosa benign. NECK: Supple, no thyromegaly, no cervical lymphadenopathy. CHEST: Symmetric anatomy, equal expansion. No wheeze, no rhonchi. HEART: Normal sinus rhythm, no gallop, no murmur. ABDOMEN: Soft. No hepato-organomegaly. Bowel sounds present. No pulsatile mass. EXTREMITIES: No cyanosis, no pedal edema. NEUROLOGIC: Alert, oriented to time, place, person. IMPRESSION: Diarrhea, abdominal pain, cramp, nausea. PLAN AND DISCUSSION: Endoscopic assessment of lower GI tract and other adjunctive diagnoses as outlined in paragraph of past medical and past surgical [place], [place] REPORT OF CONSULTATION NAME: FRANCISCO SALEEM I UNIT #: [id number] ROOM: 425 DOCTOR: SOBEIDA CHIU,OWEN BIRTHDATE: [birth year] history. OWEN VIDALES MD CM:CONSTR:REPORT OF CONSULTATION 1613 12/02/18 0454 interface
--- NOTE | ~2018-11-29 | O ---
[place], [place] OPERATIVE NOTE NAME: FRANCISCO SALEEM I UNIT #: [id number] ROOM: 425 DOCTOR: OWEN VIDALES MD BIRTHDATE: [birth year] DOS: GASTROENDOSCOPIC REPORT HISTORY: The patient has presented with chief complaint of abdominal cramps, diarrhea, and epigastric distress. PROCEDURE: Today's procedure part of investigation is panendoscopy and colonoscopy. PREMEDICATION: Propofol. SCOPE: Olympus forward-viewing gastroscope Q10 video. REPORT: After putting the patient in left lateral position and application of lubricant to the scope, scope was introduced. Thereafter, under direct visualization, advanced through the length of esophagus. Gastric pouch was entered. There was minimal residual gastric pouch, status post gastric bypass distal esophagitis. No biopsy obtained because the patient on anticoagulant. The patient extubated, tolerated the procedure well. INDICATIONS: The patient has presented with chief complaint of abdominal cramps. CT scan suspected enteritis Today's procedure part of investigation is colonoscopy. PREMEDICATION: Propofol. SCOPE: Olympus folding colonoscope 10L video. REPORT: After putting the patient in left lateral position and application of lubricant to the scope, scope was introduced. Thereafter, under direct visualization, advanced through the length of colon without difficulty. Base of the cecum explored, appendiceal orifice identified, ileocecal valve was defined. The patient extubated, tolerated the procedure well. IMPRESSION: Normal colonoscopic examination. PLAN AND DISCUSSION: Resumption of feeding. Clinical reassessment. [place], [place] OPERATIVE NOTE NAME: FRANCISCO SALEEM I UNIT #: [id number] ROOM: 425 DOCTOR: OWEN VIDALES MD BIRTHDATE: [birth year] OWEN VIDALES MD CM:OPRECORD:OPERATIVE NOTE 52 OWEN VIDALES MD 12/01/18 1654 interface
[~2018-11-29 12:49] MED LIST changes: -Amitriptyline H10 MG PO; -CEFUROXIME AXE250 MG PO
[2018-11-29 13:02] VITALS: BP 143/56
[2018-11-29 14:41] LABS: BASO # 0.1 10*3/uL (0.0-0.1); BASO % 0.8 % (0.0-1.0); EOS # 0.1 10*3/uL (0.0-0.4); EOS % 0.9 % (1.0-4.0); HEMATOCRIT 39.4 % (37.0-47.0); HEMOGLOBIN 12.4 g/dl (12.0-16.0); LYMPH # 2.7 10*3/uL (1.3-4.4); LYMPH % 41.8 % (27.0-41.0); MEAN CELL VOLUME 87.9 fl (81.0-99.0); MEAN CORPUSCULAR HGB 27.7 pg (27.0-31.0); MEAN CORPUSCULAR HGB CONC 31.5 g/dl (33.0-37.0); MEAN PLATELET VOLUME 11.7 fl (9.6-12.3); MONO # 0.6 10*3/uL (0.1-1.0); MONO % 8.8 % (3.0-9.0); NEUT % 47.4 % (47.0-73.0); PLATELET COUNT AUTOMATED 282 10*3/uL (130-400); RED BLOOD COUNT 4.48 10*6/uL (4.10-5.10); RED CELL DISTRI WIDTH 15.9 % (0-14.5); WHITE BLOOD COUNT 6.4 10*3/uL (4.8-10.8)
--- NOTE | 2018-11-29 14:48 | NUR ---
NOTIFIED BY LAB PTS LACTIC 2.2. DR COLIN NOTIFIED.
[2018-11-29 14:53] LABS: ACT PARTIAL THROMBO TIME 22.3 SECONDS (20.8-31.5)
[2018-11-29 15:01] LABS: BUN 10 mg/dl (7-24); CHLORIDE 106 mmol/L (98-107); LIPASE 56 U/L (73-393); POTASSIUM 2.9 mmol/L (3.5-5.1); SGOT/AST 21 IU/L (3-35); SGPT/ALT 25 U/L (12-78); SODIUM 139 mmol/L (136-145)
[2018-11-29 15:05] LABS: ALKALINE PHOSPHATASE 83 U/L (45-117); TOTAL PROTEIN 6.3 gm/dL (6.4-8.2); TROPONIN I < 0.015 ng/ml (<0.045)
[2018-11-29 15:15] VITALS: BP 127/77
[2018-11-29 15:33] LABS: BILIRUBIN 1+ (NEGATIVE); BLOOD 3+ (NEGATIVE); CLARITY TURBID (CLEAR); COLOR YELLOW (YELLOW); GLUCOSE TRACE (NEGATIVE); KETONE NEGATIVE (NEGATIVE); LEUKO ESTERASE 2+ (NEGATIVE); NITRITE POSITIVE (NEGATIVE)
[2018-11-29 15:47] LABS: BACTERIA 4+
[2018-11-29 16:10] VITALS: BP 157/69
--- NOTE | 2018-11-29 16:10 | NUR ---
A 68, admitted to , under the services of BRENDAN Gama DO with a diagnosis of ABDOMINAL PAIN. Chief complaint is ABDOMINAL PAIN. Patient arrived via wheel chair from ER. Monitor applied. Initial assessment completed. Vital signs taken and recorded. BRENDAN GAMA DO notified of admission to the unit. Orders received. See assessment for past medical history, medications and allergies. Patient and/or family oriented to unit. [facility] visitation policy reviewed. Clothing/patient valuable form completed. GREY AVILES
[2018-11-29 16:45] VITALS: BP 157/69
[2018-11-29] MEDS ORDERED: Amitriptyline H10 MG PO (17:21)
--- NOTE | 2018-11-29 17:45 | NUR ---
DR. VIDALES NOTIFIED OF CONSULT. OBTAINED ORDERS FOR EGD/COLO TUESDAY WITH PREP.
[2018-11-29 20:00] VITALS: BP 147/56
--- NOTE | 2018-11-29 22:14 | NUR ---
TYLENOL GIVEN PER REQUEST FOR C/O UPPER QUADRANT PAIN. WILL LEFTY.
[2018-11-30] VITALS: BP 117/53
[2018-11-30 06:29] LABS: BASO # 0.1 10*3/uL (0.0-0.1); BASO % 0.8 % (0.0-1.0); EOS # 0.2 10*3/uL (0.0-0.4); EOS % 2.4 % (1.0-4.0); HEMATOCRIT 36.5 % (37.0-47.0); HEMOGLOBIN 11.6 g/dl (12.0-16.0); LYMPH # 3.1 10*3/uL (1.3-4.4); MEAN CELL VOLUME 87.1 fl (81.0-99.0); MEAN CORPUSCULAR HGB 27.7 pg (27.0-31.0); MEAN CORPUSCULAR HGB CONC 31.8 g/dl (33.0-37.0); MEAN PLATELET VOLUME 11.3 fl (9.6-12.3); MONO # 0.6 10*3/uL (0.1-1.0); MONO % 9.5 % (3.0-9.0); NEUT # 2.4 10*3/uL (2.3-7.9); NEUT % 38.1 % (47.0-73.0); PLATELET COUNT AUTOMATED 233 10*3/uL (130-400); RED BLOOD COUNT 4.19 10*6/uL (4.10-5.10); RED CELL DISTRI WIDTH 15.8 % (0-14.5); WHITE BLOOD COUNT 6.3 10*3/uL (4.8-10.8)
[2018-11-30 06:53] LABS: ALBUMIN 2.7 gm/dl (3.1-4.5); ALKALINE PHOSPHATASE 72 U/L (45-117); BUN 10 mg/dl (7-24); CHLORIDE 112 mmol/L (98-107); CHOLESTEROL 110 mg/dL (<200); HDL CHOLESTEROL 44 mg/dl (40-60); LDL CHOLESTEROL 52 mg/dL (9-159); PHOSPHOROUS 3.1 mg/dL (2.5-4.9); POTASSIUM 3.7 mmol/L (3.5-5.1); SGOT/AST 19 IU/L (3-35); SGPT/ALT 21 U/L (12-78); SODIUM 143 mmol/L (136-145); TOTAL PROTEIN 5.5 gm/dL (6.4-8.2); TRIGLYCERIDES 71 mg/dl (<150); VLDL CHOLESTEROL 14 mg/dL (6-40)
[2018-11-30 07:28] LABS: VITAMIN D, 25-HYDROXY 18.5 ng/mL (30-100)
[2018-11-30 08:00] VITALS: BP 121/47
--- NOTE | 2018-11-30 10:37 | NUR ---
Bobbin Winder Tender in to talk to patient. Patient states lives at HOME with ALONE. There are SEVERAL steps in the home. Physician: DAO RECINOS Pharmacy: [facility] Home health services: NONE Patient's level of ADLs: INDEPENDENT Patient has working utilities: YES DME: HAS WALKER AT HOME DOES NOT USE ALL THE TIME Follow-up physician's appointment after d/c: WILL BE MADE BY HOSPITALIST NURSE DIRECTOR ON DISCHARGE Does patient want to access PORTAL?: NO Discharge plan PT STATES SHE LIVES AT HOME ALONE AND IS INDEPENDENT IN CARE. DENIES HOME NEEDS ON DISCHARGE. CAN BE DISCHARGED TO HOME WHEN MEDICALLY STABLE. WILL CONTINUE TO FOLLOW.. DANUTA KOROMA
[2018-11-30 12:00] VITALS: BP 130/68
--- NOTE | 2018-11-30 12:56 | NUR ---
PT STATES SHE "FEEL LIKE MY BLOOD SUGAR IS DROPPING" STATES SHE HAD SUDDEN ON SET OF DIZZINESS WHILE LYING IN BED AND DIAPHORETIC. BEDSIDE GLUCOSE CHECKED AND WAS READ CRITICALLY LOW ON GLUCOMETER. STAT REFLEX ORDERED. IN THE MEAN TIME PT'S CLEAR LIQUID DIET ARRIVED FROM THE KITCHEN AND SHE BEGAN TO DRINK HER JUICE AND EAT HER JELLO.
--- NOTE | 2018-11-30 13:22 | NUR ---
GLUCOSE REFLEX AT 49. PT ATE LUNCH AND STATES SHE IS FEELING BETTER NOW. BEDSIDE GLUCOSE CHECKED AFTER LUNCH AND WAS 165. WILL CONTINUE TO MONITOR.
[2018-11-30 16:00] VITALS: BP 146/64
[2018-11-30 20:00] VITALS: BP 140/61
[2018-12-01] VITALS (9 sets, daily range): BP systolic 102–153; BP diastolic 52–70
[2018-12-01 06:27] LABS: BASO # 0.1 10*3/uL (0.0-0.1); BASO % 0.8 % (0.0-1.0); EOS # 0.2 10*3/uL (0.0-0.4); EOS % 2.8 % (1.0-4.0); HEMATOCRIT 39.3 % (37.0-47.0); HEMOGLOBIN 12.1 g/dl (12.0-16.0); LYMPH # 2.1 10*3/uL (1.3-4.4); LYMPH % 34.9 % (27.0-41.0); MEAN CELL VOLUME 89.1 fl (81.0-99.0); MEAN CORPUSCULAR HGB 27.4 pg (27.0-31.0); MEAN CORPUSCULAR HGB CONC 30.8 g/dl (33.0-37.0); MEAN PLATELET VOLUME 11.4 fl (9.6-12.3); MONO # 0.7 10*3/uL (0.1-1.0); MONO % 11.2 % (3.0-9.0); NEUT % 50.1 % (47.0-73.0); PLATELET COUNT AUTOMATED 244 10*3/uL (130-400); RED BLOOD COUNT 4.41 10*6/uL (4.10-5.10)
[2018-12-01 07:01] LABS: ALBUMIN 2.9 gm/dl (3.1-4.5); ALKALINE PHOSPHATASE 78 U/L (45-117); BUN 2 mg/dl (7-24); CHLORIDE 116 mmol/L (98-107); CREATININE 0.66 mg/dL (0.55-1.02); PHOSPHOROUS 3.5 mg/dL (2.5-4.9); POTASSIUM 3.6 mmol/L (3.5-5.1); SGOT/AST 45 IU/L (3-35); SGPT/ALT 33 U/L (12-78); SODIUM 144 mmol/L (136-145); TOTAL PROTEIN 6.1 gm/dL (6.4-8.2)
--- NOTE | 2018-12-01 09:57 | NUR ---
PT HAVING EGD AND COLO TODAY. WILL CONTINUE TO FOLLOW.
[2018-12-01] MEDS ORDERED: GLUCOPHAGE500 M1 PO (18:01)
[2018-12-01] MEDS ORDERED: CEFUROXIME AXE250 MG PO (18:01)
--- NOTE | 2018-12-01 18:42 | NUR ---
DISCHARGE INSTRUCTIONS REVIEWED. HEPLOCK AND FRONT OFFICE ASSOCIATE DC'D. PT FINISHING DINNER AND WILL CALL OUT FOR WHEELCHAIR WHEN READY.
--- NOTE | 2018-12-01 18:50 | NUR ---
PT LEFT VIA WHEELCHAIR AT THIS TIME WITH HER SPOUSE.
== END 2018-12-01 18:50 | disposition home or self-care (01) | DRG 690 ==
LOC: ED 12:49 → EDHOLD 15:54 → 4E 15:54
PROVIDERS: Emergency Medicine; Internal Medicine; Internal Medicine Nephrology; ADMIT Internal Medicine
DX: N39.0 Urinary tract infection, site not specified (principal); E44.0 Moderate protein-calorie malnutrition; E87.2 Acidosis; K52.9 Noninfective gastroenteritis and colitis, unspecified; E87.6 Hypokalemia; E11.65 Type 2 diabetes mellitus with hyperglycemia; E11.40 Type 2 diabetes mellitus with diabetic neuropathy, unspecified; E55.9 Vitamin D deficiency, unspecified; E78.5 Hyperlipidemia, unspecified; K21.0 Gastro-esophageal reflux disease with esophagitis; Z96.651 Presence of right artificial knee joint; F17.210 Nicotine dependence, cigarettes, uncomplicated; M81.0 Age-related osteoporosis without current pathological fracture; I10 Essential (primary) hypertension; E53.8 Deficiency of other specified B group vitamins; E66.3 Overweight; B96.20 Unspecified Escherichia coli [E. coli] as the cause of diseases classified elsewhere; Z98.84 Bariatric surgery status; Z90.49 Acquired absence of other specified parts of digestive tract; Z88.8 Allergy status to other drugs, medicaments and biological substances; Z88.1 Allergy status to other antibiotic agents; Z87.440 Personal history of urinary (tract) infections; Z90.710 Acquired absence of both cervix and uterus; Z80.1 Family history of malignant neoplasm of trachea, bronchus and lung; Z80.41 Family history of malignant neoplasm of ovary; Z82.5 Family history of asthma and other chronic lower respiratory diseases; Z83.3 Family history of diabetes mellitus; Z82.49 Family history of ischemic heart disease and other diseases of the circulatory system; Z80.0 Family history of malignant neoplasm of digestive organs; Z91.048 Other nonmedicinal substance allergy status; Z79.899 Other long term (current) drug therapy; Z79.84 Long term (current) use of oral hypoglycemic drugs; Z68.21 Body mass index [BMI] 21.0-21.9, adult

== ENCOUNTER 2019-06-22 19:47 | Emergency (ER) | payer OTHER, MEDICAID ==
[~2019-06-22] VITALS: Ht 149.8 cm; Wt 42.2 kg
[~2019-06-22 19:47] MED LIST changes: +Amitriptyline H10 MG PO; +CEFUROXIME AXE250 MG PO
[2019-06-22 19:49] VITALS: BP 149/68
== END 2019-06-22 20:37 | disposition home or self-care (01) ==
LOC: ED 19:47
DX: S51.811A Laceration without foreign body of right forearm, initial encounter (principal); F17.210 Nicotine dependence, cigarettes, uncomplicated; Z91.048 Other nonmedicinal substance allergy status; Z88.8 Allergy status to other drugs, medicaments and biological substances; Z88.1 Allergy status to other antibiotic agents; Z79.899 Other long term (current) drug therapy; Z79.2 Long term (current) use of antibiotics; Z90.710 Acquired absence of both cervix and uterus; Z90.49 Acquired absence of other specified parts of digestive tract; W23.0XXA Caught, crushed, jammed, or pinched between moving objects, initial encounter; Y93.K1 Activity, walking an animal; Y92.89 Other specified places as the place of occurrence of the external cause; Y99.8 Other external cause status

== ENCOUNTER 2019-09-03 13:19 | Inpatient (IN) | payer OTHER, MEDICAID ==
[~2019-09-03] VITALS: Ht 149.9 cm; Wt 40.4 kg
--- NOTE | ~2019-09-03 | ST ---
[place], [place] EXERCISE STRESS TEST REPORT NAME: FRANCISCO SALEEM I UNIT #: [id number] ROOM: 426 DOCTOR: YULIYA CRAFT MD BIRTHDATE: [birth year] DOS: 09/04/2019 LEXISCAN PORTION OF THE LEXISCAN CARDIOLITE Baseline cardiogram, sinus. With Lexiscan, no new EKG changes. No chest discomfort. Blood pressure and heart rate response was normal. Nuclear images will be reported separately. YULIYA CRAFT MD CM:STRESS:EXERCISE STRESS TEST REPORT 0703 0713 YULIYA CRAFT MD
--- NOTE | ~2019-09-03 | EKG ---
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
--- NOTE | ~2019-09-03 | EKG ---
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 : 1950 Requested By: KANU CLINTON Order Number: [id number] Reading MD: Jonathan Szymanski MD Measurements Intervals [place] Rate: 66 P: 76 DE: 144 QRS: 54 QRSD: 65 T: 60 QT: 383 QTc: 402 Interpretive Statements Sinus rhythm Left atrial enlargement Low voltage, precordial leads Minimal ST elevation, inferior leads Baseline wander in lead(s) V6 Compared to ECG 11/29/2018 14:21:23 Low QRS voltage now present ST (T wave) deviation still present Electronically Signed On 09-05-2019 17:20:44 PDT by Jonathan Szymanski MD CM:EKGRPT:ELECTROCARDIOGRAM REPORT 1634 1720 KANU ABBASI DRAFT REPORT KANU CLINTON M.D.
--- NOTE | ~2019-09-03 | PR ---
[place], [place] PROGRESS NOTE NAME: FRANCISCO SALEEM I UNIT #: [id number] ROOM: 426 DOCTOR: YULIYA CRAFT MD BIRTHDATE: [birth year] DOS: 09/05/2019 SUBJECTIVE: The patient underwent a stress test yesterday which basically did not reveal any ischemic changes. The patient had an EGD. No marginal ulcers, unable to go into the efferent limb. The patient is supposed to have a GI follow through. Blood pressure is stable. Denies any chest discomfort. OBJECTIVE: VITAL SIGNS: Blood pressure is 110/60 sinus rhythm. LUNGS: Clear. HEART: Sounds are regular. NEUROLOGIC: Stable. Enzymes are all negative. RECOMMENDATIONS: Continue the present medication. Cardiac stress test is normal and we will follow up. YULIYA CRAFT MD CM:PNTRANS 1048 1604 YULIYA CRAFT MD 09/05/19 1603 interface
--- NOTE | ~2019-09-03 | CON ---
[place], [place] REPORT OF CONSULTATION NAME: FRANCISCO SALEEM I UNIT #: [id number] ROOM: 426 DOCTOR: YULIYA CRAFT MD BIRTHDATE: [birth year] DOS: 09/04/2019 CHIEF COMPLAINT: Chest pain. HISTORY OF PRESENT ILLNESS: The patient is admitted with chest discomfort across the precordial area, radiating down the left arm. No acute EKG changes, suggestion of myocardial injury or infarction. Cardiac enzymes have been negative. No nausea, no vomiting, no diaphoresis. PAST MEDICAL HISTORY: Osteoporosis, tobacco abuse, hyperglycemia, hyperlipidemia, hypertension, diabetes mellitus. SURGICAL HISTORY: Cholecystectomy, bypass surgery, knee replacement. SOCIAL HISTORY: Continues to smoke. Denies any drug abuse. FAMILY HISTORY: Not contributory. ALLERGIES: ADHESIVE, LEVOFLOXACIN. HOME MEDICATIONS: Amitriptyline, melatonin, metoprolol, omeprazole. REVIEW OF SYSTEMS: CONSTITUTIONAL: No fever, no chills. HEENT: No visual disturbances. CARDIOVASCULAR: As per HPI. GASTROINTESTINAL: No nausea, no vomiting. RESPIRATORY: Does have some shortness of breath. NEUROLOGIC: No syncope. PHYSICAL EXAMINATION: GENERAL: Alert, oriented x 3. HEENT: Unremarkable. NECK: Supple, no JVD. LUNGS: Clear. HEART: Sounds are regular. NEUROLOGICAL: Stable. LABORATORY DATA: Sodium 138, potassium 4, creatinine is 0.9. Electrolytes are normal. Hemoglobin 13.6, hematocrit within normal limits. IMPRESSION: The patient with atypical chest pain, diabetes, hypertension, tobacco abuse, chronic obstructive pulmonary disease. RECOMMENDATIONS: Continue the present medications. Cardiac enzymes have been negative, proceed with a stress test because of the risk factors and we will follow up. [place], [place] REPORT OF CONSULTATION NAME: FRANCISCO SALEEM I UNIT #: [id number] ROOM: 426 DOCTOR: YULIYA CRAFT MD BIRTHDATE: [birth year] YULIYA CRAFT MD CM:CONSTR:REPORT OF CONSULTATION 2 09/19/19 0730 interface
--- NOTE | ~2019-09-03 | EKG ---
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
--- NOTE | ~2019-09-03 | EKG ---
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 : 1950 Requested By: KANU CLINTON Order Number: [id number] Reading MD: Jonathan Szymanski MD Measurements Intervals [place] Rate: 66 P: 76 MO: 152 QRS: 61 QRSD: 58 T: 64 QT: 371 QTc: 389 Interpretive Statements Sinus rhythm ST elevation, consider inferior injury Lead(s) aVL were not used for morphology analysis Baseline wander in lead(s) V4 Compared to ECG 11/29/2018 14:21:23 Myocardial infarct finding now present ST (T wave) deviation still present Electronically Signed On 09-05-2019 17:21:51 PDT by Jonathan Szymanski MD CM:EKGRPT:ELECTROCARDIOGRAM REPORT 51 [id number] KANU ABBASI DRAFT REPORT KANU CLINTON M.D.
[2019-09-03 13:20] VITALS: BP 129/63
[2019-09-03 13:40] LABS: BASO # 0.1 10*3/uL (0.0-0.1); BASO % 0.7 % (0.0-1.0); EOS # 0.1 10*3/uL (0.0-0.4); EOS % 0.7 % (1.0-4.0); HEMATOCRIT 40.9 % (37.0-47.0); HEMOGLOBIN 13.6 g/dl (12.0-16.0); LYMPH # 2.7 10*3/uL (1.3-4.4); LYMPH % 37.9 % (27.0-41.0); MEAN CELL VOLUME 95.6 fl (81.0-99.0); MEAN CORPUSCULAR HGB 31.8 pg (27.0-31.0); MEAN CORPUSCULAR HGB CONC 33.3 g/dl (33.0-37.0); MEAN PLATELET VOLUME 11.1 fl (9.6-12.3); MONO # 0.5 10*3/uL (0.1-1.0); MONO % 6.7 % (3.0-9.0); NEUT # 3.9 10*3/uL (2.3-7.9); NEUT % 53.9 % (47.0-73.0); PLATELET COUNT AUTOMATED 317 10*3/uL (130-400); RED BLOOD COUNT 4.28 10*6/uL (4.10-5.10); RED CELL DISTRI WIDTH 14.3 % (0-14.5); WHITE BLOOD COUNT 7.2 10*3/uL (4.8-10.8)
[2019-09-03 13:52] LABS: ACT PARTIAL THROMBO TIME 24.5 SECONDS (20.0-32.1)
[2019-09-03 13:57] LABS: ALBUMIN 3.1 gm/dl (3.1-4.5); ALKALINE PHOSPHATASE 137 U/L (45-117); BUN 21 mg/dl (7-24); CHLORIDE 108 mmol/L (98-107); SGOT/AST 37 IU/L (3-35); SGPT/ALT 31 U/L (12-78); SODIUM 138 mmol/L (136-145); TOTAL PROTEIN 6.7 gm/dL (6.4-8.2)
[2019-09-03 13:58] LABS: TROPONIN I < 0.015 ng/ml (<0.045)
[2019-09-03 15:05] VITALS: BP 122/64
--- NOTE | 2019-09-03 15:20 | NUR ---
A 69, admitted to 4E, under the services of BRENDAN Gama DO with a diagnosis of ANGINA. Chief complaint is CHEST PAIN. Patient arrived via stretcher from ER. Monitor applied. Initial assessment completed. Vital signs taken and recorded. BRENDAN GAMA DO notified of admission to the unit. Orders received. See assessment for past medical history, medications and allergies. Patient and/or family oriented to unit. [facility] visitation policy reviewed. Clothing/patient valuable form completed. TATIANA ROB
[2019-09-03] MEDS ORDERED: BUSPAR5 MG PO (15:31)
[2019-09-03] MEDS ORDERED: MELATONIN10 M2 PO (15:32)
[2019-09-03 16:00] VITALS: BP 140/70
--- NOTE | 2019-09-03 17:15 | NUR ---
DR CRAFT NOTIFIED OF CONSULT
--- NOTE | 2019-09-03 19:00 | NUR ---
ASSUMED CARE FOR THIS PT AT THIS TIME. NO C/O VOICED AT PRESENT TIME. CALL LIGHT IN REACH.
[2019-09-03 20:00] VITALS: BP 137/74
--- NOTE | 2019-09-03 20:42 | NUR ---
DR. STEPHEN NOTIFIED OF PT'S HOME MEDS NEEDING CONTINUED.
[2019-09-04] VITALS (9 sets, daily range): BP systolic 109–149; BP diastolic 60–91
--- NOTE | 2019-09-04 02:31 | NUR ---
PATIENT RESTING COMFORATBLY IN HER BED AT THIS TIME. NO S/S OF DISTRESS. HR 70'S PER CM. CALL LIGHT IN REACH.
--- NOTE | 2019-09-04 07:06 | NUR ---
INFORMED CONSENT SIGNED FOR LEXISCAN STRESS TEST WITH DR. CRAFT. RESTING EKG NSR, HR 83, BP 108/60. PULSE OX 97% AND LUNGS CLEAR. COMPLETED ONE MINUTE OF LEXISCAN PROTOCOL RECEIVING LEXISCAN 0.4MG OVER 10 SECONDS. NO ARRHYTHMIAS OR ST CHANGES NOTED. PT C/O WARM FEELING. LAST RECOVERY HR 97, BP 98/56. WAITING NUCLEAR SCANNING IN STABLE CONDITION.
--- NOTE | 2019-09-04 09:00 | NUR ---
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 Patient states lives at home with family. There are few steps in the home. Physician: cecilia garibay [facility]acy: [facility] Home health services: none Patient's level of ADLs: INDEPENDENT Patient has working utilities: all working DME: walker Follow-up physician's appointment after d/c: will be made by hospitalist nurse director upon discharge Does patient want to access PORTAL?: no Discharge plan discussed with patient, she states she lives at home with family, is independent in adls and ambulation, she states she has walker at home but doesn't use it. she states she doesn't drive but her son does and takes her wherever she needs to go, she states she is having testing done today and hopefully discharged after that, she denies any home needs, case management will follow. SCOUT LOPEZ
--- NOTE | 2019-09-04 09:22 | NUR ---
PHYSICIAN WAS NOTIFIED OF DR. THOMPSON CONSULT. RESPONSE OF NOTIFICATION WAS OK I WILL BE UP TO SEE HER IN ABOUT 10 MINS. ELIANA SALINAS
[2019-09-04 09:26] LABS: BASO # 0.1 10*3/uL (0.0-0.1); BASO % 0.7 % (0.0-1.0); EOS # 0.1 10*3/uL (0.0-0.4); EOS % 0.7 % (1.0-4.0); HEMATOCRIT 40.7 % (37.0-47.0); HEMOGLOBIN 13.1 g/dl (12.0-16.0); LYMPH # 2.4 10*3/uL (1.3-4.4); LYMPH % 29.7 % (27.0-41.0); MEAN CELL VOLUME 95.8 fl (81.0-99.0); MEAN CORPUSCULAR HGB 30.8 pg (27.0-31.0); MEAN CORPUSCULAR HGB CONC 32.2 g/dl (33.0-37.0); MEAN PLATELET VOLUME 11.3 fl (9.6-12.3); MONO # 0.7 10*3/uL (0.1-1.0); MONO % 8.3 % (3.0-9.0); NEUT # 4.9 10*3/uL (2.3-7.9); NEUT % 60.4 % (47.0-73.0); PLATELET COUNT AUTOMATED 304 10*3/uL (130-400); RED BLOOD COUNT 4.25 10*6/uL (4.10-5.10); RED CELL DISTRI WIDTH 14.3 % (0-14.5); WHITE BLOOD COUNT 8.1 10*3/uL (4.8-10.8)
[2019-09-04 09:46] LABS: ALBUMIN 3.2 gm/dl (3.1-4.5); ALKALINE PHOSPHATASE 130 U/L (45-117); BUN 18 mg/dl (7-24); CHLORIDE 105 mmol/L (98-107); CHOLESTEROL 114 mg/dL (<200); FREE T4 1.02 ng/dl (0.76-1.46); HDL CHOLESTEROL 55 mg/dl (40-60); LDL CHOLESTEROL 45 mg/dL (9-159); PHOSPHOROUS 3.8 mg/dL (2.5-4.9); POTASSIUM 3.5 mmol/L (3.5-5.1); SGOT/AST 33 IU/L (3-35); SGPT/ALT 30 U/L (12-78); SODIUM 138 mmol/L (136-145); TOTAL PROTEIN 6.6 gm/dL (6.4-8.2); TRIGLYCERIDES 70 mg/dl (<150); VLDL CHOLESTEROL 14 mg/dL (6-40)
[2019-09-04 10:32] LABS: VITAMIN D, 25-HYDROXY 20.5 ng/mL (30-100)
--- NOTE | 2019-09-04 11:12 | NUR ---
PHYSICAL THERAPY Physical therapy screen completed. Pt pleasantly sitting on window ledge upon therapist entry; chatting with guest sitting in bed side chair and enjoying the scenary outside her window. Reports she has been getting up and going to the bathroom by herself and walking around without AD. Reports having some testing done this morning and is waiting to get a scope. Pt expressing no concerns. No PT needs at this time. Thank you Zoe Nieves, PT, DPT
--- NOTE | 2019-09-04 12:00 | NUR ---
RESTING COMFORTABLY. VISITING WITH FRIEND. REMAINS NPO. WAITING FOR PROCEDURE. NO QUESTIONS OR CONCERNS AT THIS TIME. GREY GUTIERREZ
--- NOTE | 2019-09-04 15:06 | NUR ---
RECEIVED REPORT FROM OR.
--- NOTE | 2019-09-04 15:47 | NUR ---
C/O NAUSEA. ZOFRAN GIVEN. WILL CONT TO MONITOR. CALL LIGHT IN REACH.
--- NOTE | 2019-09-04 16:47 | NUR ---
sai eff. will cont to monitor. call light in reach.
--- NOTE | 2019-09-04 17:07 | NUR ---
PT C/O MIDSTERNAL CP OF 05/16. WORSE WITH EATING. DR MCKEON NOTIFIED. ORDER FOR STAT EKG
--- NOTE | 2019-09-04 19:41 | NUR ---
PT MEDICATED W/TYLENOL FOR C/O UPPER MID EPIGASTRIC PAIN 06/16. WILL MONITOR FOR EFFECTIVENESS. CALL LIGHT IN REACH.
--- NOTE | 2019-09-04 22:08 | NUR ---
PT STATES THAT TYLENOL WAS SOMEWHAT EFFECTIVE FOR PAIN RELIEF.
[2019-09-05] VITALS: BP 118/63
[2019-09-05 08:00] VITALS: BP 110/60
--- NOTE | 2019-09-05 09:00 | NUR ---
case management visits with patient, she states she will return home and denies any home needs
--- NOTE | 2019-09-05 09:13 | NUR ---
Occupational Therapy evaluation offered to patient after explanation of OT. Patient declined stating she was independent in all ADLs and mobility and did not feel she needed any therapy. Discharge OT referral. Thank you. Pau Shore OTR/Rafat
[2019-09-05 12:00] VITALS: BP 119/63
--- NOTE | 2019-09-05 13:24 | NUR ---
LEFT FLOOR TO RADIOLOGY
[2019-09-05 16:59] VITALS: BP 130/67
[2019-09-05 20:00] VITALS: BP 114/54
[2019-09-06] VITALS: BP 105/61
[2019-09-06 08:00] VITALS: BP 102/68
--- NOTE | 2019-09-06 09:00 | NUR ---
case management visits with patient, she states she will return home when medically stable and denies any home needs
--- NOTE | 2019-09-06 11:43 | NUR ---
CT CHEST /ABD/PELVIS CANCELLED BECAUSE PT HAD "HEAVY"BARIUM YESTERDAY WILL RESCHEDULE
[2019-09-06 12:00] VITALS: BP 110/68; BP 115/64
[2019-09-06 16:00] VITALS: BP 122/68
[2019-09-06 20:00] VITALS: BP 125/66
[2019-09-07] VITALS: BP 112/56
[2019-09-07 06:00] LABS: BASO # 0.1 10*3/uL (0.0-0.1); BASO % 0.8 % (0.0-1.0); EOS # 0.3 10*3/uL (0.0-0.4); EOS % 2.6 % (1.0-4.0); HEMATOCRIT 41.5 % (37.0-47.0); HEMOGLOBIN 13.4 g/dl (12.0-16.0); LYMPH # 4.5 10*3/uL (1.3-4.4); LYMPH % 45.3 % (27.0-41.0); MEAN CELL VOLUME 97.6 fl (81.0-99.0); MEAN CORPUSCULAR HGB 31.5 pg (27.0-31.0); MEAN CORPUSCULAR HGB CONC 32.3 g/dl (33.0-37.0); MEAN PLATELET VOLUME 11.7 fl (9.6-12.3); MONO # 0.8 10*3/uL (0.1-1.0); MONO % 8.2 % (3.0-9.0); NEUT # 4.3 10*3/uL (2.3-7.9); NEUT % 42.8 % (47.0-73.0); PLATELET COUNT AUTOMATED 324 10*3/uL (130-400); RED BLOOD COUNT 4.25 10*6/uL (4.10-5.10)
[2019-09-07 06:20] LABS: BUN 15 mg/dl (7-24); CHLORIDE 103 mmol/L (98-107); CREATININE 0.79 mg/dL (0.55-1.02); POTASSIUM 2.7 mmol/L (3.5-5.1); SODIUM 140 mmol/L (136-145)
--- NOTE | 2019-09-07 06:51 | NUR ---
DR. STEPHEN NOTIFIED OF POTASSIUM LEVEL OF 2.7.
[2019-09-07 08:00] VITALS: BP 100/58
--- NOTE | 2019-09-07 09:00 | NUR ---
case management visits with patient, she states she will return home when medically stable and denies any home needs
--- NOTE | 2019-09-07 09:02 | NUR ---
Mary from transport states that pt is back, reported to me that she was informed pt still had barium retained so they cannot do CT scan today.
--- NOTE | 2019-09-07 09:09 | NUR ---
Spoke with Eli Camejo regarding order for KCL. Pt already has one KCL infusing with 2 more ordered. Asked if she wanted 2 total or 3 total. States she wants a total of 2 infused. Order changed.
--- NOTE | 2019-09-07 11:41 | NUR ---
Pt states that students did BSG and had result of 404. Pt states she would like it checked again because it is never that high. I checked it again and result of 362 obtained. Notified Eli Camejo.
[2019-09-07 12:00] VITALS: BP 111/62
[2019-09-07] MEDS ORDERED: Carafate1 GM PO (13:28)
--- NOTE | 2019-09-07 14:52 | NUR ---
Discharge instructions reviewed with patient/family. Patient receptive and verbalizes understanding. Follow-up care arranged. Written instructions given to patient/significant other. CASSANDRA SAMUELS
--- NOTE | 2019-09-07 15:00 | NUR ---
Pt dc via wheelchair in care of significant other.
== END 2019-09-07 14:52 | disposition home or self-care (01) | DRG 392 ==
LOC: ED 13:19 → 4E 14:31 → EDHOLD 14:31 → 4E 14:36
PROVIDERS: Emergency Medicine; Internal Medicine; Registered Nurse; ADMIT Internal Medicine
PROC: 0DJ08ZZ Inspection of Upper Intestinal Tract, Via Natural or Artificial Opening Endoscopic (ICD-10-PCS; principal; 2019-09-04)
PROC: 4A02XM4 Measurement of Cardiac Total Activity, External Approach (ICD-10-PCS; principal; 2019-09-04)
PROC: 3E073KZ Introduction of Other Diagnostic Substance into Coronary Artery, Percutaneous Approach (ICD-10-PCS; principal; 2019-09-04)
DX: K21.9 Gastro-esophageal reflux disease without esophagitis (principal); E44.0 Moderate protein-calorie malnutrition; Z68.1 Body mass index [BMI] 19.9 or less, adult; E11.65 Type 2 diabetes mellitus with hyperglycemia; E78.2 Mixed hyperlipidemia; J44.9 Chronic obstructive pulmonary disease, unspecified; Z96.651 Presence of right artificial knee joint; F17.210 Nicotine dependence, cigarettes, uncomplicated; M81.0 Age-related osteoporosis without current pathological fracture; I10 Essential (primary) hypertension; E11.40 Type 2 diabetes mellitus with diabetic neuropathy, unspecified; R14.2 Eructation; K44.9 Diaphragmatic hernia without obstruction or gangrene; Z88.1 Allergy status to other antibiotic agents; Z88.8 Allergy status to other drugs, medicaments and biological substances; Z91.09 Other allergy status, other than to drugs and biological substances; Z90.49 Acquired absence of other specified parts of digestive tract; Z98.84 Bariatric surgery status; Z90.710 Acquired absence of both cervix and uterus; Z80.1 Family history of malignant neoplasm of trachea, bronchus and lung; Z80.41 Family history of malignant neoplasm of ovary; Z83.3 Family history of diabetes mellitus; Z82.5 Family history of asthma and other chronic lower respiratory diseases; Z82.49 Family history of ischemic heart disease and other diseases of the circulatory system; Z80.0 Family history of malignant neoplasm of digestive organs; Z87.440 Personal history of urinary (tract) infections; Z79.899 Other long term (current) drug therapy

== ENCOUNTER → 2019-09-17 | Outpatient (CLI) | payer OTHER, MEDICAID ==
[~2019-09-17] MED LIST changes: +BUSPAR5 MG PO; +Carafate1 GM PO; +MELATONIN10 M2 PO
[2019-09-17 13:34] LABS: BUN 18 mg/dl (7-24); CHLORIDE 104 mmol/L (98-107); CREATININE 0.83 mg/dL (0.55-1.02); POTASSIUM 4.4 mmol/L (3.5-5.1); SODIUM 138 mmol/L (136-145)
== END | disposition home or self-care (01) ==
LOC: LAB 12:37
PROVIDERS: Registered Nurse
DX: E87.6 Hypokalemia (principal)

== ENCOUNTER → 2019-09-27 | Outpatient (CLI) | payer OTHER, MEDICAID | END | disposition home or self-care (01) | LOC: CT 09-25 13:00 | DX: R07.9 Chest pain, unspecified (principal); K76.0 Fatty (change of) liver, not elsewhere classified; I10 Essential (primary) hypertension; K21.9 Gastro-esophageal reflux disease without esophagitis; E11.9 Type 2 diabetes mellitus without complications; Z90.49 Acquired absence of other specified parts of digestive tract ==

== ENCOUNTER → 2020-06-23 | Outpatient (CLI) | payer OTHER, MEDICAID | END | disposition home or self-care (01) | LOC: MAMMO 13:30 | DX: Z12.31 Encounter for screening mammogram for malignant neoplasm of breast (principal); N64.89 Other specified disorders of breast ==

== ENCOUNTER → 2021-07-27 | Outpatient (CLI) | payer OTHER, MEDICAID | END | disposition home or self-care (01) | LOC: MAMMO 13:30 | PROVIDERS: ATTEND Physician Assistant | DX: Z12.31 Encounter for screening mammogram for malignant neoplasm of breast (principal); M81.0 Age-related osteoporosis without current pathological fracture ==

== ENCOUNTER → 2021-07-31 | Outpatient (CLI) | payer OTHER, MEDICAID | END | disposition home or self-care (01) | LOC: LAB 11:45 | PROVIDERS: ATTEND Physician Assistant | DX: M81.0 Age-related osteoporosis without current pathological fracture (principal) ==

== ENCOUNTER → 2021-08-18 | Outpatient (CLI) | payer OTHER, MEDICAID ==
[2021-08-18 10:41] VITALS: BP 123/51
== END | disposition home or self-care (01) ==
LOC: INJECTION 08-13 10:30
PROVIDERS: ATTEND Physician Assistant
DX: M81.0 Age-related osteoporosis without current pathological fracture (principal); F32.9 Major depressive disorder, single episode, unspecified; M19.90 Unspecified osteoarthritis, unspecified site; E11.9 Type 2 diabetes mellitus without complications; J45.909 Unspecified asthma, uncomplicated; F41.9 Anxiety disorder, unspecified; F17.200 Nicotine dependence, unspecified, uncomplicated

== ENCOUNTER → 2022-01-19 | Outpatient (CLI) | payer OTHER, MEDICAID | END | disposition home or self-care (01) | LOC: RAD 14:07 | PROVIDERS: ATTEND Physician Assistant | DX: J90 Pleural effusion, not elsewhere classified (principal); F17.200 Nicotine dependence, unspecified, uncomplicated ==

== ENCOUNTER → 2022-02-16 | Outpatient (CLI) | payer OTHER, MEDICAID ==
[2022-02-16 11:12] VITALS: BP 131/57
== END | disposition home or self-care (01) ==
LOC: INJECTION 11:00
PROVIDERS: ATTEND Physician Assistant
DX: M81.0 Age-related osteoporosis without current pathological fracture (principal); E11.9 Type 2 diabetes mellitus without complications; M19.90 Unspecified osteoarthritis, unspecified site; J45.909 Unspecified asthma, uncomplicated; K21.9 Gastro-esophageal reflux disease without esophagitis; F17.200 Nicotine dependence, unspecified, uncomplicated; Z87.11 Personal history of peptic ulcer disease

== ENCOUNTER → 2022-02-18 | Outpatient (CLI) | payer OTHER, MEDICAID | END | disposition home or self-care (01) | LOC: CT 00:57 | PROVIDERS: ATTEND Physician Assistant | DX: F17.200 Nicotine dependence, unspecified, uncomplicated (principal); F17.210 Nicotine dependence, cigarettes, uncomplicated ==

== ENCOUNTER → 2022-03-30 | Outpatient (CLI) | payer OTHER, MEDICAID | END | disposition home or self-care (01) | LOC: RAD 15:48 | PROVIDERS: ATTEND Physician Assistant | DX: M85.88 Other specified disorders of bone density and structure, other site (principal); R29.898 Other symptoms and signs involving the musculoskeletal system; Z90.49 Acquired absence of other specified parts of digestive tract ==

== ENCOUNTER → 2022-05-12 | Outpatient (CLI) | payer OTHER, MEDICAID | END | disposition home or self-care (01) | LOC: CT 12:31 | PROVIDERS: ATTEND Physician Assistant | DX: J44.9 Chronic obstructive pulmonary disease, unspecified (principal); K76.0 Fatty (change of) liver, not elsewhere classified; J98.11 Atelectasis; K59.00 Constipation, unspecified; Z90.49 Acquired absence of other specified parts of digestive tract; Z90.710 Acquired absence of both cervix and uterus ==

== ENCOUNTER → 2022-07-14 | Outpatient (CLI) | payer OTHER, MEDICAID ==
[~2022-07-14] MED LIST changes: +ASPIRIN ADULT L81 M1 PO; +CITRACAL-D3 201 EACH PO; +DICLOFENAC SOD50 MG PO; +IRON325 M1 PO
== END | disposition home or self-care (01) ==
LOC: CARD 04:23
PROVIDERS: ATTEND Internal Medicine Cardiovascular Disease
DX: R07.89 Other chest pain (principal); R06.02 Shortness of breath

== ENCOUNTER → 2022-07-26 | Outpatient (CLI) | payer OTHER, MEDICAID | END | disposition home or self-care (01) | LOC: CARD 02:39 | PROVIDERS: ATTEND Internal Medicine Cardiovascular Disease | DX: I08.0 Rheumatic disorders of both mitral and aortic valves (principal) ==

== ENCOUNTER → 2022-09-07 | Day surgery (SDC) | payer OTHER, MEDICAID ==
[~2022-09-07] VITALS: Ht 149.8 cm; Wt 42.2 kg
[2022-09-07 09:01] VITALS: BP 132/55
[2022-09-07 09:28] VITALS: BP 141/62
[2022-09-07 09:43] VITALS: BP 141/66
[2022-09-07 09:56] VITALS: BP 142/64
[2022-09-07 12:35] VITALS: BP 141/62
== END | disposition home or self-care (01) ==
LOC: SDC 09-03 13:15
PROVIDERS: ATTEND Specialist
DX: H83.02 Labyrinthitis, left ear (principal); F32.9 Major depressive disorder, single episode, unspecified; E11.40 Type 2 diabetes mellitus with diabetic neuropathy, unspecified; J45.909 Unspecified asthma, uncomplicated; F41.9 Anxiety disorder, unspecified; K21.9 Gastro-esophageal reflux disease without esophagitis; F17.210 Nicotine dependence, cigarettes, uncomplicated; Z90.710 Acquired absence of both cervix and uterus; Z98.890 Other specified postprocedural states; Z88.8 Allergy status to other drugs, medicaments and biological substances; Z79.899 Other long term (current) drug therapy

== ENCOUNTER 2022-09-14 15:48 | Inpatient (IN) | payer OTHER, MEDICAID ==
[~2022-09-14] VITALS: Ht 149.9 cm; Wt 39.7 kg
[2022-09-14 15:56] VITALS: BP 117/61
[2022-09-14 17:04] LABS: BASO # 0.1 10*3/uL (0.0-0.1); BASO % 0.6 % (0.0-1.0); EOS # 0.1 10*3/uL (0.0-0.4); HEMATOCRIT 38.1 % (37.0-47.0); LYMPH # 2.5 10*3/uL (1.3-4.4); LYMPH % 25.8 % (27.0-41.0); MEAN CELL VOLUME 103.5 fl (81.0-99.0); MEAN CORPUSCULAR HGB 33.7 pg (27.0-31.0); MEAN CORPUSCULAR HGB CONC 32.5 g/dl (33.0-37.0); MEAN PLATELET VOLUME 11.5 fl (9.6-12.3); MONO # 0.8 10*3/uL (0.1-1.0); MONO % 7.9 % (3.0-9.0); NEUT # 6.2 10*3/uL (2.3-7.9); NEUT % 64.4 % (47.0-73.0); PLATELET COUNT AUTOMATED 206 10*3/uL (130-400); RED BLOOD COUNT 3.68 10*6/uL (4.10-5.10); RED CELL DISTRI WIDTH 13.8 % (0-14.5); WHITE BLOOD COUNT 9.6 10*3/uL (4.8-10.8)
[2022-09-14 17:14] LABS: ACT PARTIAL THROMBO TIME 23.9 SECONDS (20.0-32.1); INTERNATIONAL NORM RATIO 1.1 (2.0-3.5)
[2022-09-14 17:20] LABS: ALKALINE PHOSPHATASE 113 U/L (45-117); BUN 18 mg/dl (7-24); CHLORIDE 108 mmol/L (98-107); CREATININE 0.91 mg/dL (0.55-1.02); LIPASE 47 U/L (73-393); POTASSIUM 4.4 mmol/L (3.5-5.1); SGOT/AST 77 IU/L (3-35); SGPT/ALT 70 U/L (12-78); SODIUM 140 mmol/L (136-145); TOTAL PROTEIN 5.6 gm/dL (6.4-8.2)
[2022-09-14 18:37] LABS: BILIRUBIN Negative (Negative); BLOOD Negative (Negative); CLARITY Cloudy (Clear); COLOR Yellow (Yellow); GLUCOSE Negative (Negative); KETONE Trace (Negative); LEUKO ESTERASE 1+ (Negative); NITRITE Positive (Negative); UROBILINOGEN 0.2 E.U./dl (0.0-1.0)
[2022-09-14 18:45] LABS: BACTERIA 4+
[2022-09-14 18:46] LABS: HYALINE CAST 0-2
[2022-09-14 19:28] VITALS: BP 133/55
[2022-09-14 20:10] VITALS: BP 137/59
[2022-09-14] MEDS ORDERED: BUSPIRONE HCL10 MG PO (21:04)
[2022-09-15] VITALS: BP 111/55
[2022-09-15 06:28] LABS: BASO # 0.1 10*3/uL (0.0-0.1); BASO % 0.8 % (0.0-1.0); EOS # 0.1 10*3/uL (0.0-0.4); EOS % 0.6 % (1.0-4.0); HEMATOCRIT 36.8 % (37.0-47.0); LYMPH # 2.3 10*3/uL (1.3-4.4); LYMPH % 29.9 % (27.0-41.0); MEAN CELL VOLUME 102.2 fl (81.0-99.0); MEAN CORPUSCULAR HGB 33.6 pg (27.0-31.0); MEAN CORPUSCULAR HGB CONC 32.9 g/dl (33.0-37.0); MEAN PLATELET VOLUME 11.7 fl (9.6-12.3); MONO # 0.6 10*3/uL (0.1-1.0); MONO % 7.2 % (3.0-9.0); NEUT # 4.8 10*3/uL (2.3-7.9); NEUT % 61.2 % (47.0-73.0); PLATELET COUNT AUTOMATED 180 10*3/uL (130-400); RED CELL DISTRI WIDTH 13.4 % (0-14.5); WHITE BLOOD COUNT 7.8 10*3/uL (4.8-10.8)
[2022-09-15 06:44] LABS: ALKALINE PHOSPHATASE 106 U/L (45-117); BUN 18 mg/dl (7-24); CHLORIDE 111 mmol/L (98-107); CREATININE 0.89 mg/dL (0.55-1.02); POTASSIUM 5.3 mmol/L (3.5-5.1); SGOT/AST 51 IU/L (3-35); SGPT/ALT 57 U/L (12-78); SODIUM 141 mmol/L (136-145); TOTAL PROTEIN 5.3 gm/dL (6.4-8.2)
[2022-09-15 08:00] VITALS: BP 139/66
[2022-09-15 12:00] VITALS: BP 116/55
[2022-09-15 16:00] VITALS: BP 109/58
[2022-09-15 20:00] VITALS: BP 115/61
[2022-09-16] VITALS: BP 110/54
[2022-09-16 06:41] LABS: BUN 18 mg/dl (7-24); CHLORIDE 108 mmol/L (98-107); CREATININE 0.91 mg/dL (0.55-1.02); POTASSIUM 4.5 mmol/L (3.5-5.1); SODIUM 139 mmol/L (136-145)
[2022-09-16 08:00] VITALS: BP 118/58
[2022-09-16 12:00] VITALS: BP 124/60
[2022-09-16 16:00] VITALS: BP 114/55
[2022-09-16 20:00] VITALS: BP 107/50
[2022-09-17] VITALS: BP 100/53
[2022-09-17 06:50] LABS: BASO # 0.1 10*3/uL (0.0-0.1); BASO % 0.6 % (0.0-1.0); EOS # 0.2 10*3/uL (0.0-0.4); EOS % 2.1 % (1.0-4.0); HEMATOCRIT 33.2 % (37.0-47.0); LYMPH # 2.7 10*3/uL (1.3-4.4); LYMPH % 32.6 % (27.0-41.0); MEAN CORPUSCULAR HGB 33.7 pg (27.0-31.0); MEAN CORPUSCULAR HGB CONC 33.7 g/dl (33.0-37.0); MEAN PLATELET VOLUME 10.8 fl (9.6-12.3); MONO # 0.7 10*3/uL (0.1-1.0); MONO % 8.4 % (3.0-9.0); NEUT # 4.7 10*3/uL (2.3-7.9); NEUT % 56.1 % (47.0-73.0); PLATELET COUNT AUTOMATED 183 10*3/uL (130-400); RED BLOOD COUNT 3.32 10*6/uL (4.10-5.10); RED CELL DISTRI WIDTH 13.3 % (0-14.5); WHITE BLOOD COUNT 8.4 10*3/uL (4.8-10.8)
[2022-09-17 07:27] LABS: CHLORIDE 103 mmol/L (98-107); POTASSIUM 4.1 mmol/L (3.5-5.1); SODIUM 136 mmol/L (136-145)
[2022-09-17 07:34] LABS: ALKALINE PHOSPHATASE 97 U/L (45-117); CREATININE 1.02 mg/dL (0.55-1.02); SGOT/AST 79 IU/L (3-35); SGPT/ALT 52 U/L (12-78); TOTAL PROTEIN 4.9 gm/dL (6.4-8.2)
[2022-09-17 07:38] LABS: BUN 29 mg/dl (7-24)
[2022-09-17 08:00] VITALS: BP 113/50
[2022-09-17] MEDS ORDERED: BACTRIM 400-801 EACH PO (10:59)
[2022-09-17 12:00] VITALS: BP 105/53
== END 2022-09-17 16:57 | disposition home or self-care (01) | DRG 689 ==
LOC: ED 15:48 → 4E 18:57 → EDHOLD 18:57 → 4E 20:27
PROVIDERS: Emergency Medicine; Internal Medicine; ADMIT Student in an Organized Health Care Education/Training Program; ATTEND Student in an Organized Health Care Education/Training Program
DX: N39.0 Urinary tract infection, site not specified (principal); E43 Unspecified severe protein-calorie malnutrition; Z68.1 Body mass index [BMI] 19.9 or less, adult; K21.9 Gastro-esophageal reflux disease without esophagitis; Z96.651 Presence of right artificial knee joint; E78.5 Hyperlipidemia, unspecified; E11.40 Type 2 diabetes mellitus with diabetic neuropathy, unspecified; M81.0 Age-related osteoporosis without current pathological fracture; J44.9 Chronic obstructive pulmonary disease, unspecified; I50.9 Heart failure, unspecified; F17.210 Nicotine dependence, cigarettes, uncomplicated; I11.0 Hypertensive heart disease with heart failure; R26.89 Other abnormalities of gait and mobility; Z88.1 Allergy status to other antibiotic agents; Z88.8 Allergy status to other drugs, medicaments and biological substances; Z90.49 Acquired absence of other specified parts of digestive tract; Z90.710 Acquired absence of both cervix and uterus; Z98.84 Bariatric surgery status; Z83.3 Family history of diabetes mellitus; Z80.1 Family history of malignant neoplasm of trachea, bronchus and lung; Z80.41 Family history of malignant neoplasm of ovary; Z80.0 Family history of malignant neoplasm of digestive organs

== ENCOUNTER → 2022-10-21 | Outpatient (CLI) | payer OTHER, MEDICAID ==
[~2022-10-21] MED LIST changes: +BACTRIM 400-801 EACH PO; +BUSPIRONE HCL10 MG PO
== END | disposition home or self-care (01) ==
LOC: MRI 09-16 00:11
PROVIDERS: ATTEND Specialist
DX: I67.82 Cerebral ischemia (principal)

== ENCOUNTER → 2023-01-03 | Outpatient (CLI) | payer OTHER, MEDICAID | END | disposition home or self-care (01) | LOC: MAMMO 09:30 | PROVIDERS: ATTEND Physician Assistant | DX: Z12.31 Encounter for screening mammogram for malignant neoplasm of breast (principal) ==

== ENCOUNTER 2023-01-05 14:52 | Emergency (ER) | payer OTHER, MEDICAID ==
[~2023-01-05] VITALS: Ht 124.4 cm; Wt 41.3 kg
[2023-01-05 15:28] LABS: BASO # 0.1 10*3/uL (0.0-0.1); BASO % 0.7 % (0.0-1.0); EOS # 0.1 10*3/uL (0.0-0.4); EOS % 1.1 % (1.0-4.0); HEMATOCRIT 38.7 % (37.0-47.0); LYMPH % 41.2 % (27.0-41.0); MEAN CELL VOLUME 105.2 fl (81.0-99.0); MEAN CORPUSCULAR HGB 33.7 pg (27.0-31.0); MEAN PLATELET VOLUME 11.4 fl (9.6-12.3); MONO # 0.6 10*3/uL (0.1-1.0); MONO % 6.2 % (3.0-9.0); NEUT # 4.8 10*3/uL (2.3-7.9); NEUT % 50.5 % (47.0-73.0); PLATELET COUNT AUTOMATED 225 10*3/uL (130-400); RED BLOOD COUNT 3.68 10*6/uL (4.10-5.10); RED CELL DISTRI WIDTH 14.1 % (0-14.5); WHITE BLOOD COUNT 9.6 10*3/uL (4.8-10.8)
[2023-01-05 15:44] LABS: ACT PARTIAL THROMBO TIME 25.3 SECONDS (20.0-32.1)
[2023-01-05 15:46] LABS: ALKALINE PHOSPHATASE 99 U/L (46-116); BUN 14 mg/dl (9-23); CHLORIDE 103 mmol/L (98-107); POTASSIUM 4.2 mmol/L (3.4-5.1); SGPT/ALT 52 U/L (10-49); TOTAL PROTEIN 5.9 gm/dL (6.0-8.0)
[2023-01-05 17:02] VITALS: BP 142/60
== END 2023-01-05 18:38 | disposition home or self-care (01) ==
LOC: ED 14:52
PROVIDERS: Internal Medicine
DX: B34.9 Viral infection, unspecified (principal); R07.9 Chest pain, unspecified; Z88.1 Allergy status to other antibiotic agents; Z88.8 Allergy status to other drugs, medicaments and biological substances; Z79.899 Other long term (current) drug therapy; Z79.82 Long term (current) use of aspirin; Z90.49 Acquired absence of other specified parts of digestive tract; Z98.890 Other specified postprocedural states; Z90.710 Acquired absence of both cervix and uterus; F17.210 Nicotine dependence, cigarettes, uncomplicated

== ENCOUNTER 2023-03-25 11:33 | Emergency (ER) | payer OTHER, MEDICAID ==
[~2023-03-25] VITALS: Ht 149.8 cm; Wt 44.5 kg
[~2023-03-25 11:33] MED LIST changes: +FEOSOL325 MG PO
[2023-03-25 11:43] VITALS: BP 145/63
[2023-03-25 12:08] LABS: BASO # 0.1 10*3/uL (0.0-0.1); BASO % 0.9 % (0.0-1.0); EOS # 0.2 10*3/uL (0.0-0.4); EOS % 2.4 % (1.0-4.0); HEMATOCRIT 41.7 % (37.0-47.0); LYMPH # 3.2 10*3/uL (1.3-4.4); LYMPH % 38.4 % (27.0-41.0); MEAN CELL VOLUME 105.6 fl (81.0-99.0); MEAN CORPUSCULAR HGB 33.7 pg (27.0-31.0); MEAN CORPUSCULAR HGB CONC 31.9 g/dl (33.0-37.0); MONO # 0.7 10*3/uL (0.1-1.0); MONO % 8.2 % (3.0-9.0); NEUT # 4.2 10*3/uL (2.3-7.9); NEUT % 49.7 % (47.0-73.0); PLATELET COUNT AUTOMATED 230 10*3/uL (130-400); RED BLOOD COUNT 3.95 10*6/uL (4.10-5.10); RED CELL DISTRI WIDTH 13.2 % (0-14.5); WHITE BLOOD COUNT 8.4 10*3/uL (4.8-10.8)
[2023-03-25 12:23] LABS: BILIRUBIN Negative (Negative); BLOOD Negative (Negative); CLARITY Clear (Clear); COLOR Yellow (Yellow); GLUCOSE Trace (Negative); KETONE Trace (Negative); LEUKO ESTERASE Trace (Negative); NITRITE Negative (Negative); SPECIFIC GRAVITY 1.025 (1.001-1.030); UROBILINOGEN 0.2 E.U./dl (0.0-1.0)
[2023-03-25 12:34] LABS: ALKALINE PHOSPHATASE 101 U/L (46-116); BUN 16 mg/dl (9-23); CHLORIDE 106 mmol/L (98-107); POTASSIUM 4.3 mmol/L (3.4-5.1); SGPT/ALT 41 U/L (10-49); TOTAL PROTEIN 6.4 gm/dL (6.0-8.0)
[2023-03-25 12:41] LABS: BACTERIA 1+; CALCIUM OXALATE CRYSTALS 1+
[2023-03-25] MEDS ORDERED: CEPHALEXIN500 M1 PO (13:20)
[2023-03-25] MEDS ORDERED: ANUSOL-HC25 MG R (13:20)
== END 2023-03-25 13:42 | disposition home or self-care (01) ==
LOC: ED 11:33
PROVIDERS: Student in an Organized Health Care Education/Training Program
DX: N30.00 Acute cystitis without hematuria (principal); R19.7 Diarrhea, unspecified; K64.4 Residual hemorrhoidal skin tags; Z88.8 Allergy status to other drugs, medicaments and biological substances; Z88.1 Allergy status to other antibiotic agents; Z79.899 Other long term (current) drug therapy; Z90.49 Acquired absence of other specified parts of digestive tract; Z90.710 Acquired absence of both cervix and uterus; Z98.890 Other specified postprocedural states; F17.210 Nicotine dependence, cigarettes, uncomplicated

== ENCOUNTER → 2023-05-18 | Day surgery (SDC) | payer OTHER, MEDICAID ==
[~2023-05-18] VITALS: Ht 152.4 cm; Wt 68.0 kg
[~2023-05-18] MED LIST changes: +ANUSOL-HC25 MG R; +CEPHALEXIN500 M1 PO
[2023-05-18 09:46] VITALS: BP 132/47
[2023-05-18 10:03] VITALS: BP 95/38
[2023-05-18 10:18] VITALS: BP 101/40
[2023-05-18 10:33] VITALS: BP 116/54
[2023-05-18 12:08] VITALS: BP 95/38
== END ==
LOC: SDC 05-13 08:00
PROVIDERS: ATTEND Specialist
DX: H83.02 Labyrinthitis, left ear (principal); I10 Essential (primary) hypertension; E11.9 Type 2 diabetes mellitus without complications; J44.9 Chronic obstructive pulmonary disease, unspecified; E78.00 Pure hypercholesterolemia, unspecified; F41.9 Anxiety disorder, unspecified; K64.8 Other hemorrhoids; F17.210 Nicotine dependence, cigarettes, uncomplicated; Z98.890 Other specified postprocedural states

== ENCOUNTER 2024-01-03 20:40 | Inpatient (IN) | payer OTHER, MEDICAID ==
[~2024-01-03] VITALS: Wt 47.6 kg
[2024-01-03 20:44] VITALS: BP 155/53
[2024-01-03 20:56] LABS: BASO # 0.1 10*3/uL (0.0-0.1); BASO % 0.7 % (0.0-1.0); EOS # 0.3 10*3/uL (0.0-0.4); EOS % 3.1 % (1.0-4.0); HEMATOCRIT 39.2 % (37.0-47.0); LYMPH # 4.3 10*3/uL (1.3-4.4); LYMPH % 44.1 % (27.0-41.0); MEAN CELL VOLUME 104.5 fl (81.0-99.0); MEAN CORPUSCULAR HGB 33.3 pg (27.0-31.0); MEAN CORPUSCULAR HGB CONC 31.9 g/dl (33.0-37.0); MEAN PLATELET VOLUME 10.7 fl (9.6-12.3); MONO # 0.9 10*3/uL (0.1-1.0); MONO % 9.4 % (3.0-9.0); NEUT # 4.1 10*3/uL (2.3-7.9); NEUT % 42.3 % (47.0-73.0); PLATELET COUNT AUTOMATED 250 10*3/uL (130-400); RED BLOOD COUNT 3.75 10*6/uL (4.10-5.10); RED CELL DISTRI WIDTH 13.3 % (0-14.5); WHITE BLOOD COUNT 9.7 10*3/uL (4.8-10.8)
[2024-01-03] MEDS ORDERED: DICLOFENAC SOD50 MG PO (20:59)
[2024-01-03] MEDS ORDERED: CITRACAL-D3 201 EACH PO (21:00)
[2024-01-03 21:16] LABS: BUN 17 mg/dl (9-23); CHLORIDE 110 mmol/L (98-107); LIPASE 21 U/L (12-53); POTASSIUM 5.3 mmol/L (3.4-5.1)
[2024-01-03] MEDS ORDERED: SODIUM CHLORIDE 0.9% 1,000 ML IV ONE (21:55)
[2024-01-03] MEDS ORDERED: Ondansetron Hydrochloride 4 MG/2 ML VIAL IV PRN (23:45)
[2024-01-03] MEDS ORDERED: MORPHINE Sulfate 2 MG/ML SYR IV PRN (23:45)
[2024-01-03] MEDS ORDERED: ACETAMINOPHEN 325 MG TAB PO PRN (23:45)
[2024-01-03] MEDS ORDERED: BISACODYL 10 MG SUPP R PRN (23:45)
[2024-01-03] MEDS ORDERED: TEMAZEPAM 15 MG CAP PO PRN (23:45)
[2024-01-03] MEDS ORDERED: Acetaminophen/Hydrocodone 5 MG/325 MG TABLET PO PRN (23:45)
[2024-01-03] MEDS ORDERED: Magnesium Hydroxide 30 ML UDC PO PRN (23:45)
[2024-01-03] MEDS ORDERED: BISACODYL 5 MG TAB PO PRN (23:45)
[2024-01-03] MEDS ORDERED: Pantoprazole Sodium 40 MG TAB PO PRN (23:50)
[2024-01-03 23:57] VITALS: BP 130/47
[2024-01-04 05:34] VITALS: BP 106/42
[2024-01-04] MEDS ORDERED: Regadenoson 0.4 MG/5 ML SYR IV ONE (06:40)
[2024-01-04 07:12] LABS: BASO # 0.1 10*3/uL (0.0-0.1); BASO % 0.6 % (0.0-1.0); EOS # 0.4 10*3/uL (0.0-0.4); EOS % 4.9 % (1.0-4.0); HEMATOCRIT 40.1 % (37.0-47.0); LYMPH # 3.4 10*3/uL (1.3-4.4); LYMPH % 39.4 % (27.0-41.0); MEAN CELL VOLUME 105.8 fl (81.0-99.0); MEAN CORPUSCULAR HGB 32.2 pg (27.0-31.0); MEAN CORPUSCULAR HGB CONC 30.4 g/dl (33.0-37.0); MEAN PLATELET VOLUME 11.3 fl (9.6-12.3); MONO # 0.8 10*3/uL (0.1-1.0); MONO % 8.8 % (3.0-9.0); PLATELET COUNT AUTOMATED 228 10*3/uL (130-400); RED BLOOD COUNT 3.79 10*6/uL (4.10-5.10); RED CELL DISTRI WIDTH 13.4 % (0-14.5); WHITE BLOOD COUNT 8.6 10*3/uL (4.8-10.8)
[2024-01-04] MEDS ORDERED: Technetium Tc 99M Tetrofosmi 0.23 MG KIT IJ SCH (07:15)
[2024-01-04 08:00] LABS: ALKALINE PHOSPHATASE 104 U/L (46-116); BUN 13 mg/dl (9-23); CHLORIDE 111 mmol/L (98-107); CHOLESTEROL 113 mg/dL (<200); FREE T4 1.01 ng/dl (0.89-1.76); LDL CHOLESTEROL 52 mg/dL (9-159); SGPT/ALT 25 U/L (5-49); TOTAL PROTEIN 5.7 gm/dL (6.0-8.0); TRIGLYCERIDES 55 mg/dl (<150)
[2024-01-04 08:04] LABS: POTASSIUM 4.2 mmol/L (3.4-5.1)
[2024-01-04 08:19] LABS: VITAMIN D, 25-HYDROXY 15.8 ng/mL (30-100)
[2024-01-04] MEDS ORDERED: Enoxaparin Sodium 40 MG/0.4 ML SYR SC SCH (10:00)
[2024-01-04] MEDS ORDERED: METOPROLOL SUCCINATE XR 25 MG TAB PO SCH (10:00)
[2024-01-04] MEDS ORDERED: ASPIRIN ENTERIC COATED 81 MG TAB PO SCH (10:00)
[2024-01-04 11:33] VITALS: BP 140/56
[2024-01-04] MEDS ORDERED: PHARMASSURE V500 MCG PO (13:49)
[2024-01-04] MEDS ORDERED: VITAMIN D350 MCG PO (13:49)
[2024-01-05] MEDS ORDERED: Cholecalciferol 2,000 UNIT TABLET (50 MCG) PO SCH (10:00)
[2024-01-05] MEDS ORDERED: CYANOCOBALAMIN 500 MCG TAB PO SCH (10:00)
== END 2024-01-04 22:41 | disposition home or self-care (01) | DRG 392 ==
LOC: ED → EDHOLD 22:51
PROVIDERS: Internal Medicine; Student in an Organized Health Care Education/Training Program; ADMIT Internal Medicine; ATTEND Internal Medicine
PROC: 4A02XM4 Measurement of Cardiac Total Activity, External Approach (ICD-10-PCS; principal; 2024-01-04)
PROC: 3E073KZ Introduction of Other Diagnostic Substance into Coronary Artery, Percutaneous Approach (ICD-10-PCS; 2024-01-04)
DX: K21.9 Gastro-esophageal reflux disease without esophagitis (principal); F17.210 Nicotine dependence, cigarettes, uncomplicated; E78.5 Hyperlipidemia, unspecified; I08.3 Combined rheumatic disorders of mitral, aortic and tricuspid valves; E11.69 Type 2 diabetes mellitus with other specified complication; Z96.651 Presence of right artificial knee joint; Z80.1 Family history of malignant neoplasm of trachea, bronchus and lung; Z90.49 Acquired absence of other specified parts of digestive tract; Z90.710 Acquired absence of both cervix and uterus; Z88.1 Allergy status to other antibiotic agents; Z88.8 Allergy status to other drugs, medicaments and biological substances; Z80.41 Family history of malignant neoplasm of ovary; Z83.3 Family history of diabetes mellitus; Z79.899 Other long term (current) drug therapy; Z71.6 Tobacco abuse counseling

== ENCOUNTER → 2024-02-24 | Outpatient (CLI) | payer OTHER, MEDICAID ==
[~2024-02-24] MED LIST changes: +PHARMASSURE V500 MCG PO; +VITAMIN D350 MCG PO
== END | disposition home or self-care (01) ==
LOC: MRI 02-22 13:00
PROVIDERS: ATTEND Orthopaedic Surgery
DX: S46.812A Strain of other muscles, fascia and tendons at shoulder and upper arm level, left arm, initial encounter (principal); M19.012 Primary osteoarthritis, left shoulder; M75.112 Incomplete rotator cuff tear or rupture of left shoulder, not specified as traumatic; M75.52 Bursitis of left shoulder; X58.XXXA Exposure to other specified factors, initial encounter; Y93.89 Activity, other specified; Y92.89 Other specified places as the place of occurrence of the external cause; Y99.8 Other external cause status

== ENCOUNTER 2025-02-18 09:26 | Observation (INO) | payer OTHER, MEDICAID ==
[~2025-02-18] VITALS: Wt 49.0 kg
[2025-02-18 09:43] VITALS: BP 140/50
[2025-02-18 10:01] LABS: BASO # 0.1 10*3/uL (0.0-0.1); BASO % 0.8 % (0.0-1.0); EOS # 0.2 10*3/uL (0.0-0.4); EOS % 2.4 % (1.0-4.0); HEMATOCRIT 39.2 % (37.0-47.0); MEAN CELL VOLUME 105.4 fl (81.0-99.0); MEAN CORPUSCULAR HGB 32.8 pg (27.0-31.0); MEAN CORPUSCULAR HGB CONC 31.1 g/dl (33.0-37.0); MEAN PLATELET VOLUME 10.9 fl (9.6-12.3); MONO # 0.7 10*3/uL (0.1-1.0); MONO % 7.4 % (3.0-9.0); NEUT # 4.5 10*3/uL (2.3-7.9); PLATELET COUNT AUTOMATED 201 10*3/uL (130-400); RED BLOOD COUNT 3.72 10*6/uL (4.10-5.10); RED CELL DISTRI WIDTH 13.5 % (0-14.5); WHITE BLOOD COUNT 9.2 10*3/uL (4.8-10.8)
[2025-02-18 10:12] LABS: ACT PARTIAL THROMBO TIME 24.9 SECONDS (20.0-32.1)
[2025-02-18 10:26] LABS: ALKALINE PHOSPHATASE 124 U/L (46-116); BUN 17 mg/dl (9-23); CHLORIDE 108 mmol/L (98-107); POTASSIUM 4.1 mmol/L (3.4-5.1); SGPT/ALT 24 U/L (5-49); TOTAL PROTEIN 5.9 gm/dL (6.0-8.0)
[2025-02-18] MEDS ORDERED: HEARTBURN RELIE20 MG PO (10:50)
[2025-02-18] MEDS ORDERED: IBANDRONATE SO150 M1 PO (10:51)
[2025-02-18 10:54] LABS: BILIRUBIN Negative (Negative); BLOOD Negative (Negative); CLARITY Clear (Clear); COLOR Yellow (Yellow); GLUCOSE Negative (Negative); KETONE Negative (Negative); LEUKO ESTERASE 1+ (Negative); NITRITE Negative (Negative); PH 5.5 (4.5-8.0); SPECIFIC GRAVITY 1.015 (1.001-1.030); UROBILINOGEN 0.2 E.U./dl (0.0-1.0)
[2025-02-18 11:15] LABS: WBC 16-20 wbc/hpf (0-5)
[2025-02-18] MEDS ORDERED: SODIUM CHLORIDE 0.9% 1,000 ML IV ONE (11:15)
[2025-02-18 11:16] LABS: BACTERIA 3+; RBC 0-2 rbc/hpf (0-2)
[2025-02-18] MEDS ORDERED: BISACODYL 5 MG TAB PO PRN (12:00)
[2025-02-18] MEDS ORDERED: Ondansetron Hydrochloride 4 MG/2 ML VIAL IV PRN (12:00)
[2025-02-18] MEDS ORDERED: ACETAMINOPHEN 325 MG TAB PO PRN (12:00)
[2025-02-18] MEDS ORDERED: Technetium Tc 99M Tetrofosmi 0.23 MG KIT IJ SCH (12:20)
[2025-02-18 14:12] VITALS: BP 142/52
[2025-02-18 18:53] VITALS: BP 140/52
[2025-02-18 21:25] VITALS: BP 131/56
[2025-02-18 23:40] VITALS: BP 141/46
[2025-02-19] MEDS ORDERED: Regadenoson 0.4 MG/5 ML SYR IV ONE (05:20)
[2025-02-19 06:24] LABS: BASO # 0.1 10*3/uL (0.0-0.1); BASO % 0.7 % (0.0-1.0); EOS # 0.3 10*3/uL (0.0-0.4); EOS % 2.8 % (1.0-4.0); HEMATOCRIT 39.2 % (37.0-47.0); MEAN CELL VOLUME 103.2 fl (81.0-99.0); MEAN CORPUSCULAR HGB 32.6 pg (27.0-31.0); MEAN CORPUSCULAR HGB CONC 31.6 g/dl (33.0-37.0); MEAN PLATELET VOLUME 11.8 fl (9.6-12.3); MONO # 0.8 10*3/uL (0.1-1.0); NEUT % 39.1 % (47.0-73.0); PLATELET COUNT AUTOMATED 236 10*3/uL (130-400); RED CELL DISTRI WIDTH 13.5 % (0-14.5); WHITE BLOOD COUNT 10.1 10*3/uL (4.8-10.8)
[2025-02-19 06:48] LABS: ALKALINE PHOSPHATASE 120 U/L (46-116); BUN 17 mg/dl (9-23); CHLORIDE 106 mmol/L (98-107); FREE T4 1.14 ng/dl (0.89-1.76); POTASSIUM 4.2 mmol/L (3.4-5.1); SGPT/ALT 33 U/L (5-49); TOTAL PROTEIN 6.1 gm/dL (6.0-8.0)
[2025-02-19 07:08] LABS: VITAMIN D, 25-HYDROXY 20.1 ng/mL (30-100)
[2025-02-19 08:00] VITALS: BP 114/43
[2025-02-19] MEDS ORDERED: ASPIRIN ENTERIC COATED 81 MG TAB PO SCH (10:00)
[2025-02-19] MEDS ORDERED: Enoxaparin Sodium 40 MG/0.4 ML SYR SC SCH (10:00)
[2025-02-19] MEDS ORDERED: Cholecalciferol 2,000 UNIT TABLET (50 MCG) PO SCH (10:00)
[2025-02-19 12:00] VITALS: BP 101/49
[2025-02-19] MEDS ORDERED: ASPIRIN ADULT L81 M2 PO (14:12)
[2025-02-19] MEDS ORDERED: ATORVASTATIN CA40 M1 PO (14:12)
[2025-02-20] MEDS ORDERED: ATORVASTATIN CALCIUM 40 MG TABLET PO SCH (10:00)
== END 2025-02-19 16:20 | disposition home health service (06) ==
LOC: ED 09:26 → 5E 11:08 → EDHOLD 11:08 → 5E 22:31
PROVIDERS: Internal Medicine; Registered Nurse; ADMIT Family Medicine; ATTEND Family Medicine
DX: R07.89 Other chest pain (principal); R53.1 Weakness; E55.9 Vitamin D deficiency, unspecified; E44.0 Moderate protein-calorie malnutrition; G62.9 Polyneuropathy, unspecified; K21.9 Gastro-esophageal reflux disease without esophagitis; J44.9 Chronic obstructive pulmonary disease, unspecified; F17.210 Nicotine dependence, cigarettes, uncomplicated; Z20.822 Contact with and (suspected) exposure to COVID-19; Z88.8 Allergy status to other drugs, medicaments and biological substances; Z79.899 Other long term (current) drug therapy

== ENCOUNTER 2025-08-22 12:49 | Emergency (ER) | payer OTHER, MEDICAID ==
[~2025-08-22] VITALS: Ht 149.8 cm; Wt 46.7 kg
[~2025-08-22 12:49] MED LIST changes: +ASPIRIN ADULT L81 M2 PO; +ATORVASTATIN CA40 M1 PO; +HEARTBURN RELIE20 MG PO; +IBANDRONATE SO150 M1 PO
[2025-08-22 13:05] VITALS: BP 121/40
[2025-08-22] MEDS ORDERED: SODIUM CHLORIDE 0.9% 1,000 ML IV ONE (13:15)
[2025-08-22] MEDS ORDERED: HYDROmorphONE Hydrochloride 0.5 MG/0.5 ML SYRINGE IV ONE (13:15)
[2025-08-22] MEDS ORDERED: Ondansetron Hydrochloride 4 MG/2 ML VIAL IV ONE (13:15)
[2025-08-22] MEDS ORDERED: IOHEXOL 300 MG/ML 100 ML VIAL IV ONE (13:25)
[2025-08-22 14:04] LABS: BASO # 0.1 10*3/uL (0.0-0.1); BASO % 0.8 % (0.0-1.0); EOS # 0.2 10*3/uL (0.0-0.4); EOS % 2.4 % (1.0-4.0); MEAN CELL VOLUME 103.4 fl (81.0-99.0); MEAN CORPUSCULAR HGB 33.2 pg (27.0-31.0); MEAN PLATELET VOLUME 11.4 fl (9.6-12.3); MONO # 0.7 10*3/uL (0.1-1.0); MONO % 7.3 % (3.0-9.0); NEUT # 5.3 10*3/uL (2.3-7.9); NEUT % 55.9 % (47.0-73.0); NUCLEATED RED BLOOD CELL 0.0 % (0.0-0.0); NUCLEATED RED BLOOD CELL 0.0 10*3/uL (0.0-0.0); PLATELET COUNT AUTOMATED 251 10*3/uL (130-400); RED CELL DISTRI WIDTH 13.3 % (0-14.5)
[2025-08-22 14:14] LABS: BILIRUBIN Negative (Negative); BLOOD Negative (Negative); CLARITY Cloudy (Clear); COLOR Yellow (Yellow); KETONE Trace (Negative); LEUKO ESTERASE 2+ (Negative); NITRITE Negative (Negative); PH 5.0 (4.5-8.0); SPECIFIC GRAVITY 1.020 (1.001-1.030); UROBILINOGEN 0.2 E.U./dl (0.0-1.0)
[2025-08-22 14:23] LABS: BACTERIA 1+; EPITHELIAL CELLS 21-30; MUCOUS 1+; RBC 0-2 rbc/hpf (0-2); WBC 16-20 wbc/hpf (0-5)
[2025-08-22 14:38] LABS: BUN 26.0 mg/dl (9-23)
[2025-08-22] MEDS ORDERED: CEPHALEXIN500 M1 PO (17:28)
== END 2025-08-22 17:39 | disposition home or self-care (01) ==
LOC: ED 12:49
PROVIDERS: Nurse Practitioner Family
DX: N39.0 Urinary tract infection, site not specified (principal); R05.9 Cough, unspecified; K21.9 Gastro-esophageal reflux disease without esophagitis; F41.9 Anxiety disorder, unspecified; E78.5 Hyperlipidemia, unspecified; M81.0 Age-related osteoporosis without current pathological fracture; F17.210 Nicotine dependence, cigarettes, uncomplicated; Z91.048 Other nonmedicinal substance allergy status; Z88.8 Allergy status to other drugs, medicaments and biological substances; Z79.82 Long term (current) use of aspirin; Z79.899 Other long term (current) drug therapy; Z98.84 Bariatric surgery status; Z90.49 Acquired absence of other specified parts of digestive tract; Z90.710 Acquired absence of both cervix and uterus; Z96.651 Presence of right artificial knee joint; Z20.822 Contact with and (suspected) exposure to COVID-19

== ENCOUNTER → 2025-09-19 | Outpatient (CLI) | payer OTHER, MEDICAID | END | disposition home or self-care (01) | LOC: RAD 01:17 → MAMMO 14:00 → RAD 09-20 13:30 | PROVIDERS: ATTEND Physician Assistant | DX: Z12.31 Encounter for screening mammogram for malignant neoplasm of breast (principal); M81.0 Age-related osteoporosis without current pathological fracture; N64.89 Other specified disorders of breast; R92.333 Mammographic heterogeneous density, bilateral breasts ==

== ENCOUNTER → 2025-10-17 | Outpatient (CLI) | payer OTHER, MEDICAID | END | disposition home or self-care (01) | LOC: US 10-09 13:30 | PROVIDERS: ATTEND Physician Assistant | DX: R92.8 Other abnormal and inconclusive findings on diagnostic imaging of breast (principal) ==